=== PATIENT | female | born 1940 | race Caucasian/White ===

== ENCOUNTER 2016-09-16 11:23 | Inpatient (IN) | payer MEDICARE, BC ==
[2016-09-16] MEDS ORDERED: Ondansetron INJ* 2 MG/ML VIAL IV ONE (13:38)
[2016-09-16] MEDS ORDERED: NS 0.9% 1000 ML* 2,000 ML IV ONE (13:38)
[2016-09-16] MEDS ORDERED: Morphine INJ* 4 MG/ML 1 ML CARPUJECT IV ONE ×2 (13:38→13:47)
[2016-09-16] MEDS ORDERED: Aspirin Low Dose CHEW TAB* 81 MG PO ONE (13:38)
[2016-09-16 13:53] LABS: Hematocrit 30 % (35-47); Hemoglobin 9.4 g/dl (12.0-16.0); Mean Corpuscular HGB Conc 32 g/dl (31-36); Mean Corpuscular Hemoglobin 26 pg (27-31); Mean Corpuscular Volume 83 fL (80-97); Mean Platelet Volume 9 um3 (7.4-10.4); Red Blood Count 3.59 10^6/ul (4.0-5.4); Red Cell Distribution Width 16 % (10.5-15)
[2016-09-16 14:07] LABS: Troponin I 0.02 ng/mL (<0.04)
[2016-09-16 14:09] LABS: ALT 8 U/L (7-52); AST 12 U/L (13-39); Albumin 3.3 g/dL (3.2-5.2); Alkaline Phosphatase 79 U/L (34-104); Amylase 51 U/L (29-103); Anion Gap 5 mmol/L (2-11); BUN/Creatinine Ratio 17.5 (8-20); Blood Urea Nitrogen 14 mg/dL (6-24); C Reactive Protein 100.35 mg/L (< 5.00); CO2 Carbon Dioxide 33 mmol/L (22-32); Calcium 12.8 mg/dL (8.6-10.3); Chloride 98 mmol/L (101-111); Creatine Kinase 19 U/L (10-223); EGFR African American 89.4 (>60); EGFR Non-African American 69.6 (>60); Globulin 3.9 g/dL (2-4); Glucose 120 mg/dL (70-100); Lipase < 10 U/L (11.0-82.0); Magnesium 1.8 mg/dL (1.9-2.7); Sodium 136 mmol/L (133-145); Total Protein 7.2 g/dL (6.4-8.9)
--- NOTE | 2016-09-16 14:16 | RAD ---
HISTORY: Cough, shortness of breath, pneumonia COMPARISONS: None VIEWS:1: Single frontal portable view of the chest at 1:50 PM FINDINGS: LINES AND TUBES: None. CARDIOMEDIASTINAL SILHOUETTE: The cardiomediastinal silhouette is normal for portable technique. PLEURA: The costophrenic angles are sharp. No pleural abnormalities are noted. LUNG PARENCHYMA: There is opacification appears to be limited to the right lower lobe, with relative sparing of the right middle and upper lobes ABDOMEN: The upper abdomen is clear. There is no subphrenic gas. BONES AND SOFT TISSUES: No bone or soft tissue abnormalities are noted. IMPRESSION: RIGHT LOWER LOBE OPACIFICATION. WHILE THIS MAY REPRESENT INFECTIOUS CONSOLIDATION, NEOPLASM OR OTHER INFILTRATIVE PROCESS IS WITHIN THE DIFFERENTIAL. RECOMMEND CONSIDERATION OF FURTHER EVALUATION WITH CONTRAST-ENHANCED CT OF THE CHEST
[2016-09-16] MEDS ORDERED: Iohexol 350* (CONTRAST) 500 ML MDV IV ONE (14:50)
[2016-09-16 14:51] LABS: Erythrocyte Sed Rate 94 mm/Hr (0-40)
--- NOTE | 2016-09-16 16:33 | RAD ---
Indication: Right-sided chest pain, white loss and hemoptysis. Contrast: Administered 78.0 ml of Contrast -- mgi/ml CTA of the chest, abdomen and pelvis was performed after oral and IV contrast administration. Coronal and sagittal reconstructed images were obtained. The pulmonary arterial tree is well opacified. There are no filling defects present to suggest pulmonary embolus. There is a large mass in the right upper lobe lung zone extending into the right middle lobe measuring 9.2 x 9.7 x 10.5 cm. A central air fluid level is noted suggestive of necrosis. There is solid component which extends through the chest wall. This is suspicious for neoplastic process. Additional mass is noted in the right lower lobe medially measuring approximately 2.2 cm. This is suspicious for metastatic focus. The left lung field demonstrates no evidence of alveolar consolidation or pleural fluid. Emphysematous changes of the lung field is noted. There is likely right hilar adenopathy measuring up to 12 mm. Subcarinal lymph nodes measuring up to 17 mm is present. The heart demonstrates no pericardial effusion. The bony structures demonstrates chronic compression of T7. No sclerotic or lytic lesions are identified. CT of the abdomen and pelvis was performed. The liver is normal in size. Low density lesion in the medial left lobe of liver measuring up to 2.5 cm is nonspecific however mass is not excluded. Typical focal fatty infiltration is noted in the medial segment of left lobe of liver. Gallbladder demonstrates no calcified gallstones. The spleen is normal in size. There is a hiatal hernia present. Pancreas demonstrates no mass or pancreatic ductal dilatation. No calcified gallstones are noted. No pericholecystic fluid or wall thickening is identified. The common duct is not dilated. There is a left adrenal mass measuring 3.3 cm with low density central portion which may represent necrosis. There is suggestion of a right adrenal mass measuring up to 13 mm. Metastatic disease should BE considered. Aorta and inferior vena cava are unremarkable. The kidneys demonstrate symmetric nephrograms. Low density lesion in the right kidney measures 17 mm and is not clearly cystic. Ultrasound May BE helpful for further evaluation. CT of the pelvis demonstrates uterus and ovaries to be unremarkable. The urinary bladder is unremarkable. No hernias are identified. The remainder of the bony structures are unremarkable. IMPRESSION: THERE IS NO EVIDENCE OF PULMONARY EMBOLUS. A LARGE CAVITARY MASS IS NOTED IN THE RIGHT UPPER LOBE EXTENDING INTO THE RIGHT MIDDLE LOBE WITH BULGING OF THE CONTOUR THROUGH THE CHEST WALL IN THE RIGHT LATERAL ASPECT. THIS MEASURES UP TO 10.5 CM WITH MULTIPLE LOBULATED SOLID COMPONENTS. THIS IS SUSPICIOUS FOR NEOPLASTIC PROCESS. ADDITIONAL LOBULATED MASS IS NOTED IN THE LOWER LOBE MEDIALLY MEASURING UP TO 2.5 CM CONSISTENT WITH METASTATIC DISEASE. THERE IS MILD MEDIASTINAL ADENOPATHY WITH PROBABLE RIGHT HILAR ADENOPATHY NOTED. BILATERAL ADRENAL MASS LARGER ON THE LEFT THAN ON THE RIGHT SUSPICIOUS FOR METASTATIC DISEASE. LOW DENSITY LESION IN THE POSTERIOR MEDIAL SEGMENT OF THE LEFT LOBE OF LIVER FOR WHICH METASTATIC DISEASE CANNOT BE EXCLUDED. LOW DENSITY LESION IN THE RIGHT KIDNEY NOT CLEARLY CYSTIC. ULTRASOUND IS SUGGESTED.
[2016-09-16] MEDS ORDERED: Acetaminophen TAB* 325 MG PO PRN (17:51)
--- NOTE | 2016-09-16 18:52 | ED ---
Ascencion Murguia Erika, scribed for Oskar Palafox MD on 09/16/16 at 1458 . HPI Chest Pain - HPI Summary HPI Summary: Patient is a 76-year-old female presenting to the ED with a CC of constant chest pain starting 2 weeks ago. She reports that the pain is located right anterior and in her right upper back, and radiates around the rib cage occasionally. Pain has stayed at the same severity. Pain is slightly alleviated by lying supine, and slightly aggravated by deep breathing, but is not changed by PO intake. Patient also reports SOB, wheezing, and a productive cough. SOB is aggravated by exertion. Pt is unsure if she has had blood in her sputum. Pt also states that she has been weak for the past 2-3 weeks, and loses her balance while walking. Associated symptoms include diaphoresis at night as well as decreased appetite and constipation. Per daughter, pt has lost at least 15 lbs in the past month. Patient denies fever, chills, abdominal pain, blood in her stool, diarrhea, additional myalgias/arthralgias, and pain/swelling in her legs. Pt states she did not have a flu shot this season. Pt states she does not take any medication. FHx CAD. Pt is a former smoker - quit 8 months ago - and she rarely drinks. - History of Current Complaint Chief Complaint: EDChestPainROMI Time Seen by Provider: 09/16/16 13:20 Hx Obtained From: Patient, Family/Produce Laborer - daughter Onset/Duration: Started Weeks Ago - 2 weeks, Atraumatic, Still Present Timing: Constant Current Severity: Moderate Pain Intensity: 10 Pain Scale Used: 0-10 Numeric Chest Pain Location: Right Anterior Chest Pain Radiates: Yes Chest Pain Radiates To:: Back - right Aggravating Factor(s): Deep Breaths Alleviating Factor(s): Position - supine Associated Signs and Symptoms: Positive: Weakness - and decreased balance, Shortness of Breath, Diaphoresis, Productive Cough, Wheezing, Other: - weight loss, decreased appetite - Allergy/Home Medications Allergies/Adverse Reactions: Allergies Allergy/AdvReac Type Severity Reaction Status Date / Time No Known Allergies Allergy Verified 09/16/16 11:24 Home Medications: Home Medications NK [No Home Medications Reported] 09/16/16 [History Confirmed 09/16/16] PMH/Surg Hx/FS Hx/Imm Hx Endocrine/Hematology History: Denies: Hx Diabetes Cardiovascular History: Denies: Hx Hypertension Infectious Disease History: No Infectious Disease History: Denies: Traveled Outside the [place] in Last 30 Days - Family History Known Family History: Positive: Cardiac Disease - Social History Alcohol Use: Rare Hx Tobacco Use: Yes Smoking Status (MU): Former Smoker Review of Systems Positive: Skin Diaphoresis. Negative: Fever, Chills Positive: Chest Pain - radiates to back Positive: Shortness Of Breath - with wheezing, Cough - productive Positive: Other - decreased appetite, constipation. Negative: Abdominal Pain, Diarrhea Negative: Edema Positive: Weakness - with decreased balance All Other Systems Reviewed And Are Negative: Yes Physical Exam - Summary Physical Exam Summary: The patient is well-nourished in no acute distress and in no acute pain. The skin is warm and dry and skin color reflects adequate perfusion. There are no rashes. There is decreased skin turgor. HEENT: The head is normocephalic and atraumatic. The pupils are equal and reactive. The conjunctivae are pale and without drainage. Nares are patent and without drainage. Mouth reveals dry mucous membranes and the throat is without erythema and exudate. The external ears are intact. The ear canals are patent and without drainage. The tympanic membranes are intact. Neck is supple with full range of motion and non-tender. There are no carotid bruits. There is some neck vein distension. There is no cervical lymphadenopathy. Respiratory: Chest is non-tender. There are decreased breath sounds throughout. Cardiovascular: Heart is regular rate and rhythm. There is no murmur or rub auscultated. There is no peripheral edema and pulses are symmetrical and equal. Abdomen: The abdomen is soft and non-tender. There are normal bowel sounds heard in all four quadrants and there is no organomegaly palpated. Musculoskeletal: There is no back pain noted. Extremities are non-tender with full range of motion. Capillary refill is 3 seconds. There is no peripheral edema or calf tenderness elicited. Neurological: Patient is alert and oriented to person, place and time. The patient has symmetrical motor strength in all four extremities. Cranial nerves are grossly intact. Deep tendon reflexes are symmetrical and equal in all four extremities. Psychiatric: The patient has an appropriate affect and does not exhibit any anxiety or depression. Triage Information Reviewed: Yes Vital Signs On Initial Exam: Initial Vitals Temp Pulse Resp BP Pulse Ox 99.8 F 86 18 127/51 97 09/16/16 11:24 09/16/16 11:24 09/16/16 11:24 09/16/16 11:24 09/16/16 11:24 Vital Signs Reviewed: Yes Diagnostics - Vital Signs Vital Signs Temp Pulse Resp BP Pulse Ox 09/16/16 11:24 99.8 F 86 18 127/51 97 - Laboratory Lab Results: Lab Results 09/16/16 09/16/16 09/16/16 Range/Units 11:40 11:40 11:40 WBC 13.0 H (3.5-10.8) 10^3/ul RBC 3.59 L (4.0-5.4) 10^6/ul Hgb 9.4 L (12.0-16.0) g/dl Hct 30 L (35-47) % MCV 83 (80-97) fL MCH 26 L (27-31) pg MCHC 32 (31-36) g/dl RDW 16 H (10.5-15) % Plt Count 385 (150-450) 10^3/ul MPV 9 (7.4-10.4) um3 Neut % (Auto) 77.7 (38-83) % Lymph % (Auto) 11.0 L (25-47) % Meigs % (Auto) 7.7 (1-9) % Eos % (Auto) 2.6 (0-6) % Baso % (Auto) 1.0 (0-2) % Absolute Neuts (auto) 10.1 H (1.5-7.7) 10^3/ul Absolute Lymphs (auto) 1.4 (1.0-4.8) 10^3/ul Absolute Monos (auto) 1.0 H (0-0.8) 10^3/ul Absolute Eos (auto) 0.3 (0-0.6) 10^3/ul Absolute Basos (auto) 0.1 (0-0.2) 10^3/ul Absolute Nucleated RBC 0.01 10^3/ul Nucleated RBC % 0 ESR 94 H (0-40) mm/Hr INR (Anticoag Therapy) 0.98 (0.89-1.11) D-Dimer, Quantitative 287 H (Less Than 230) ng/mL Sodium 136 (133-145) mmol/L Potassium 3.0 L (3.5-5.0) mmol/L Chloride 98 L (101-111) mmol/L Carbon Dioxide 33 H (22-32) mmol/L Anion Gap 5 (2-11) mmol/L BUN 14 (6-24) mg/dL Creatinine 0.80 (0.51-0.95) mg/dL Est GFR ( Amer) 89.4 (>60) Est GFR (Non-Af Amer) 69.6 (>60) BUN/Creatinine Ratio 17.5 (8-20) Glucose 120 H (70-100) mg/dL Calcium 12.8 H (8.6-10.3) mg/dL Magnesium 1.8 L (1.9-2.7) mg/dL Total Bilirubin 0.40 (0.2-1.0) mg/dL AST 12 L (13-39) U/L ALT 8 (7-52) U/L Alkaline Phosphatase 79 (34-104) U/L Total Creatine Kinase 19 (10-223) U/L Troponin I 0.02 (<0.04) ng/mL C-Reactive Protein 100.35 H (< 5.00) mg/L B-Natriuretic Peptide ( - 100) pg/mL Total Protein 7.2 (6.4-8.9) g/dL Albumin 3.3 (3.2-5.2) g/dL Globulin 3.9 (2-4) g/dL Albumin/Globulin Ratio 0.8 L (1-3) Amylase 51 (29-103) U/L Lipase < 10 L (11.0-82.0) U/L TSH 0.70 (0.34-5.60) mcIU/mL 09/16/16 Range/Units 11:40 WBC (3.5-10.8) 10^3/ul RBC (4.0-5.4) 10^6/ul Hgb (12.0-16.0) g/dl Hct (35-47) % MCV (80-97) fL MCH (27-31) pg MCHC (31-36) g/dl RDW (10.5-15) % Plt Count (150-450) 10^3/ul MPV (7.4-10.4) um3 Neut % (Auto) (38-83) % Lymph % (Auto) (25-47) % Meigs % (Auto) (1-9) % Eos % (Auto) (0-6) % Baso % (Auto) (0-2) % Absolute Neuts (auto) (1.5-7.7) 10^3/ul Absolute Lymphs (auto) (1.0-4.8) 10^3/ul Absolute Monos (auto) (0-0.8) 10^3/ul Absolute Eos (auto) (0-0.6) 10^3/ul Absolute Basos (auto) (0-0.2) 10^3/ul Absolute Nucleated RBC 10^3/ul Nucleated RBC % ESR (0-40) mm/Hr INR (Anticoag Therapy) (0.89-1.11) D-Dimer, Quantitative (Less Than 230) ng/mL Sodium (133-145) mmol/L Potassium (3.5-5.0) mmol/L Chloride (101-111) mmol/L Carbon Dioxide (22-32) mmol/L Anion Gap (2-11) mmol/L BUN (6-24) mg/dL Creatinine (0.51-0.95) mg/dL Est GFR ( Amer) (>60) Est GFR (Non-Af Amer) (>60) BUN/Creatinine Ratio (8-20) Glucose (70-100) mg/dL Calcium (8.6-10.3) mg/dL Magnesium (1.9-2.7) mg/dL Total Bilirubin (0.2-1.0) mg/dL AST (13-39) U/L ALT (7-52) U/L Alkaline Phosphatase (34-104) U/L Total Creatine Kinase (10-223) U/L Troponin I (<0.04) ng/mL C-Reactive Protein (< 5.00) mg/L B-Natriuretic Peptide 178 H ( - 100) pg/mL Total Protein (6.4-8.9) g/dL Albumin (3.2-5.2) g/dL Globulin (2-4) g/dL Albumin/Globulin Ratio (1-3) Amylase (29-103) U/L Lipase (11.0-82.0) U/L TSH (0.34-5.60) mcIU/mL Result Diagrams: 09/16/16 11:40 09/16/16 11:40 Lab Statement: Any lab studies that have been ordered have been reviewed, and results considered in the medical decision making process. - Radiology CXR Radiology Interpretation Completed By: Radiologist - IMPRESSION: RIGHT LOWER LOBE OPACIFICATION. WHILE THIS MAY REPRESENT INFECTIOUS CONSOLIDATION, NEOPLASM OR OTHER INFILTRATIVE PROCESS IS WITHIN THE DIFFERENTIAL. RECOMMEND CONSIDERATION OF FURTHER EVALUATION WITH CONTRAST-ENHANCED CT OF THE CHEST - CT CTA Chest/Abd/Pelvis CT Interpretation Completed By: Radiologist - IMPRESSION: THERE IS NO EVIDENCE OF PULMONARY EMBOLUS. A LARGE CAVITARY MASS IS NOTED IN THE RIGHT UPPER LOBE EXTENDING INTO THE RIGHT MIDDLE LOBE WITH BULGING OF THE CONTOUR THROUGH THE CHEST WALL IN THE RIGHT LATERAL ASPECT. THIS MEASURES UP TO 10.5 CM WITH MULTIPLE LOBULATED SOLID COMPONENTS. THIS IS SUSPICIOUS FOR NEOPLASTIC PROCESS. ADDITIONAL LOBULATED MASS IS NOTED IN THE LOWER LOBE MEDIALLY MEASURING UP TO 2.5 CM CONSISTENT WITH METASTATIC DISEASE. THERE IS MILD MEDIASTINAL ADENOPATHY WITH PROBABLE RIGHT HILAR ADENOPATHY NOTED. BILATERAL ADRENAL MASS LARGER ON THE LEFT THAN ON THE RIGHT SUSPICIOUS FOR METASTATIC DISEASE. LOW DENSITY LESION IN THE POSTERIOR MEDIAL SEGMENT OF THE LEFT LOBE OF LIVER FOR WHICH METASTATIC DISEASE CANNOT BE EXCLUDED. LOW DENSITY LESION IN THE RIGHT KIDNEY NOT CLEARLY CYSTIC. ULTRASOUND IS SUGGESTED. - EKG 11:29 Cardiac Rate: NL - at 81 bpm EKG Rhythm: Sinus Rhythm Ectopy: PVCs EKG Interpretation: Poor R wave progression Chest Pain Course/Dx - Course Assessment/Plan: Patient is a 76 y/o F presenting to the ED with a CC of chest pain, SOB, wheezing, and cough for the past 2 weeks. EKG shows NSR with PVCs and poor R wave progression. Patient was given ASA, IV fluids, zofran, and morphine in the ED course. Chest/Abd/Pelvis CTA shows "There is no evidence of pulmonary embolus. A large cavitary mass is noted in the right upper lobe extending into the right middle lobe with bulging of the contour through the chest wall in the right lateral aspect. This measures up to 10.5 cm with multiple lobulated solid components. This is suspicious for neoplastic process. Additional lobulated mass is noted in the lower lobe medially measuring up to 2.5 cm consistent with metastatic disease. There is mild mediastinal adenopathy with probable right hilar adenopathy noted. Bilateral adrenal mass larger on the left than on the right suspicious for metastatic disease. Low density lesion in the posterior medial segment of the left lobe of liver for which metastatic disease cannot be excluded. Low density lesion in the right kidney not clearly cystic. Ultrasound is suggested." The case was discussed with Dr. Watson (hospitalist), and patient will be admitted for further work up and management. Patient is agreeable with this plan - Chest Pain Differential Diagnosis/HQI/PQRI: Acute MA, Lower Respiratory Infection, Pulmonary Embolism, Other: - lung cancer with mets, dehydration - Diagnoses Provider Diagnoses: Lung tumor, Metastatic disease - Provider Notifications Discussed Care Of Patient With: Dr. Watson (hospitalist) at 17:36 - agrees to admit Discharge - Discharge Plan Condition: Stable Disposition: ADMITTED TO [facility] The documentation as recorded by the Ascencion antony Erika accurately reflects the service I personally performed and the decisions made by , Oskar Palafox MD.
[2016-09-16] MEDS ORDERED: Iohexol 300* (CONTRAST) 10 ML SDV IV ONE (19:19)
--- NOTE | 2016-09-16 19:45 | RAD ---
Indication: Confusion, evaluate for metastases. Contrast: Administered 74.9 ml of OMNIPAQUE 300 mgi/ml CT of the brain performed without and with IV contrast. Ventricular structures are midline. No midline shift is noted. Central and cortical atrophy is noted. There is a hyperdense mass in the right parietal lobe high in the right parietal convexity with enhancement. This is consistent with the metastatic focus. Adjacent vasogenic edema is noted. No midline shift is noted. Periventricular lucency consistent with chronic ischemic White matter change is noted. Mastoid air cells and paranasal sinuses are unremarkable. IMPRESSION: HYPERDENSE ENHANCING MASS HIGH IN THE RIGHT PARIETAL CONVEXITY CONSISTENT WITH A METASTATIC FOCUS WITH ADJACENT VASOGENIC EDEMA.
[2016-09-16] MEDS: oxyCODONE/Acetamin 5/325 MG* TAB PO PRN (20:07)
[2016-09-16] MEDS: oxyCODONE SR TAB(*) 10 MG TAB.SR PO SCH (20:08)
[2016-09-16] MEDS: Enoxaparin(*) 40 MG/0.4 ML SYR SUBCUT SCH (20:36)
--- NOTE | 2016-09-16 21:16 | HP ---
HOSPITAL MEDICINE HISTORY AND PHYSICAL: DATE OF ADMISSION: 09/16/16 PRIMARY CARE PHYSICIAN: None. ATTENDING PHYSICIAN: He Watson MD * (dictation provided by Chandni Rose NP ). CHIEF COMPLAINT: Chest pain. HISTORY OF PRESENT ILLNESS: Ms. oNguera is a 76-year-old female with no known past medical history other than prolonged smoking who presented to the hospital today with concern for right-sided chest discomfort. Ms. Nougera states that she has had at least 6 months of chest pain that seemed to get much worse over the past month. She went to [facility] approximately 3 weeks ago to be seen in the emergency room, but she waited for several hours and ultimately left without being seen. She decided to come in today because the pain was so severe that she could not get any relief. She states that the only thing that helps with the pain is lying down on her bed on her stomach, although this is not particularly helpful. She has had a cough, but it has not been productive. She states she is short of breath and her breathing is a bit labored. She reports smoking most of her life until about 6 months ago. She used to be a heavy drinker, but states that she has not been able to tolerate drinking any longer. She lives with her . She denies any fevers, chills, abdominal pain, nausea, difficulty with bowel movements or urination. I will note that Ms. Noguera is a bit of a difficult historian and seems to have some confusion at times. This is corroborated by her memory care program director who is at the bedside who states that she has had definite periods of confusion over the past month or so. In the emergency room, Ms. Noguera had a chest x-ray, which showed concern for right lower lobe opacification and it was recommended that a contrast-enhanced CT of the chest will be ordered. This was done and also included an abdomen and pelvis CT and it has been read to show "a large cavitary mass in the right upper lobe extending into the right middle lobe with bulging of the contour through the chest wall and to the right lateral aspect. It is suspicious for a neoplastic process. Additional lobulated mass is noted in the lower lobe medially measuring up to 2.5 cm consistent with metastatic disease. There is mild mediastinal adenopathy with proper right hilar adenopathy noted. Bilateral adrenal mass large in the left than on the right suspicious for metastatic disease. Low density lesion in the posterior medial segment of the left lobe of liver for which metastatic disease cannot be excluded and low density lesion in the right kidney, not clearly cystic. Ultrasound is suggested." Ms. Noguera was informed of the concern for large mass in the lung with additional masses noted in the abdomen with high suspicion for cancer with metastatic disease. Hospital Medicine was called regarding admission. PAST MEDICAL HISTORY: None. MEDICATIONS: Ibuprofen p.r.n. ALLERGIES: None. FAMILY HISTORY: The patient reports her dad at 52 from alcoholism. Mom from heart disease. SOCIAL HISTORY: The patient states she quit smoking 6 months ago after decades of smoking. She reports previously being a daily drinker, but has not been able to drink for several months due to feeling poorly. She states that her is her healthcare proxy. I do note that he has chronic illnesses on peritoneal dialysis. REVIEW OF SYSTEMS: A 14-point review of systems was completed with Ms. Noguera and all those not mentioned above were negative. PHYSICAL EXAMINATION GENERAL: Ms. Noguera is sitting up in the bed. She is a very unkempt thin female, in no acute distress. VITAL SIGNS: Temperature 98.7, heart rate 118, respiratory rate 21, O2 saturation 90% on 2 L, blood pressure 111/71. LUNGS: Diminished bilaterally with no accessory muscle use. HEART: S1, S2. No murmur, rub, or gallop and regular. ABDOMEN: Soft, nontender with bowel sounds positive x4. NEURO: She is alert. She is oriented x3, but she definitely evidences confusion and has distracted conversation and it is hard to keep on task. She moves all extremities equally. There is no facial asymmetry or focal weakness. Extraocular movements are intact. EXTREMITIES: No cyanosis or edema. SKIN: Intact. LABORATORY DATA/DIAGNOSTIC STUDIES: WBC 13.0, hemoglobin 9.4, hematocrit 30, and platelet count 385. ESR 94, INR 0.98, D-dimer 287. Sodium 136, potassium 3.0, chloride 98, serum bicarbonate 33, BUN 14, creatinine 0.80, glucose 120, magnesium 1.8, troponin 0.02. CRP 100.35, BNP 178. Chest x-ray is read as follows; "right lower lobe opacification. While this may represent infectious consolidation, neoplasm or other infiltrative process is within the differential" and chest, abdomen, and pelvis CTA as read above. ASSESSMENT: Ms. Noguera is a 76-year-old female who has not previously sought out medical care who has a prolonged smoking history and presents today at hospital with concern for right-sided chest discomfort for over 6 months as well as dyspnea on exertion. In the emergency room, she has been found to have a large right-sided mass in the lung as well as multiple sites of likely metastasis in the abdomen with high suspicion for malignancy. Our plans are for inpatient admission as I expect the length of stay to be greater than 2 days for the followin. Chest pain with suspected malignancy with metastasis: The patient will have OxyContin started tonight at 10 mg q.12 hours. She will also have oxycodone available p.r.n. We can adjust this as needed until we can find a dosage regimen that will keep her comfortable. Again, there is a high suspicion for malignancy. I am adding on a CT of the brain in the setting of altered mental status. The patient will need to follow up closely with Oncology. 2. DVT prophylaxis with heparin subcu. 3. Disposition to medical floor. I questioned whether or not the patient will be able to remain at home and care for herself. I know that her is chronically ill as well. I have ordered Physical Therapy to better assess her capacity for independent living. TIME SPENT: Approximately 60 minutes were spent on the admission of this patient, more than half the time spent with the patient at the bedside reviewing the events leading up to this hospitalization, performing the physical examination, and reviewing [place] [id number]/[facility] #: [id number] SHAUNNA
[2016-09-17] MEDS: oxyCODONE/Acetamin 5/325 MG* TAB PO PRN ×3 (00:09→21:19)
[2016-09-17] MEDS: oxyCODONE SR TAB(*) 10 MG TAB.SR PO SCH ×2 (07:43→17:53)
[2016-09-17] MEDS ORDERED: Dexamethasone IV* 12 MG in NS 0.9% 50 ML* 50 ML IVPB ONE (08:30)
[2016-09-17] MEDS: NS 0.9% 1000 ML* 1,000 ML IV SCH ×2 (12:08→21:28)
[2016-09-17 12:17] LABS: Hematocrit 28 % (35-47); Hemoglobin 8.8 g/dl (12.0-16.0); Mean Corpuscular HGB Conc 32 g/dl (31-36); Mean Corpuscular Hemoglobin 26 pg (27-31); Mean Corpuscular Volume 83 fL (80-97); Mean Platelet Volume 8 um3 (7.4-10.4); Red Blood Count 3.36 10^6/ul (4.0-5.4); Red Cell Distribution Width 16 % (10.5-15); White Blood Count 11.3 10^3/ul (3.5-10.8)
[2016-09-17 12:28] LABS: BUN/Creatinine Ratio 14.9 (8-20); Calcium 11.9 mg/dL (8.6-10.3); EGFR African American 109.8 (>60); EGFR Non-African American 85.3 (>60); Potassium 3.1 mmol/L (3.5-5.0)
[2016-09-17] MEDS ORDERED: ZOLEDRONIC ACID IVPB ONE (12:30)
[2016-09-17] MEDS ORDERED: NS 0.9% IVPB ONE (12:30)
[2016-09-17] MEDS: Dexamethasone IV* 4 MG/ML 1 ML (4 MG) IV SLOW PU SCH ×2 (13:51→21:15)
--- NOTE | 2016-09-17 14:28 | CONS ---
MEDICAL ONCOLOGY CONSULTATION NOTE: DATE OF ADMISSION: 09/16/16 DATE OF CONSULT: 09/17/16 REASON FOR CONSULTATION: New diagnosis of large lung mass and likely lung cancer. HISTORY OF PRESENT ILLNESS: Mrs. Metz is a 76-year-old female with no previous medical care for many years and no previous significant medical history other than prolonged smoking. She reports variously that she has had a right-sided chest pain for 3 months and another time for 6 months. This pain was getting worse. She has been taking Tylenol and ibuprofen, which helps for a short period of time, but would help the most just to lay on the right side. Associated with this, she has had shortness of breath especially when first getting up in the morning and then better after being up for a while. She is rarely getting out of the house. She has not been eating much and reports her weight loss has been dramatic from a 175 pounds several years ago down to a 121 now including about a 40 pound weight loss over the last 6 to 8 months. She has only had a very mild cough. Since she has been in the hospital, this pain has been under much better control. She denies any recent fevers, sweats, chills, or other signs of significant infections. Information is obtained from the patient, from the patient's chart, and also from her stepson who came into the room partway through our conversation. Initial chest x-ray on 09/16/16 reveals a very large right lower lobe opacification. Associated with this, a CT scan of the chest, abdomen, and pelvis was then performed. This revealed approximately a 10 cm right middle lobe mass. There is essential air-fluid level suggestive of necrosis. The solid component goes through the chest wall and actually erodes one of the right lateral ribs. A second right lower lobe lung mass was also noted approximately 2.2 cm. There is significant mediastinal and hilar adenopathy although none over 1.7 cm in short axis. In the abdomen, there is a very suspicious left adrenal mass measuring up to 3.3 cm. The right adrenal is less suspicious but maybe also an issue. Medial left lobe of the liver with a nonspecific mass up to 2.5 cm, although this is not definitively metastatic. The right kidney has a 1.7 cm mass, which is partially cystic and may or may not be another metastatic lesion. No significant abnormalities are seen in the bones other than the eroded right lateral rib. CT scan of the brain is also obtained initially without contrast and then with. This reveals a hypodense enhancing mass high in the right parietal convexity consistent with a metastatic focus. There was a small amount of associated vasogenic edema. There is no shift. PAST MEDICAL AND SURGICAL HISTORY: No previous hospitalizations. No previous surgeries. No hypertension, diabetes, [place], or CVA documented. MEDICATIONS: 1. P.R.N. ibuprofen. 2. P.R.N. Tylenol. ALLERGIES: None. FAMILY HISTORY: Father of alcoholism at age 52. Mother of heart disease. No family history of any malignancies. SOCIAL HISTORY: The patient has been smoking cigarettes since her 40s. Reports she quit 6 months ago, just felt as though she no longer could smoke a pack a day or more for approximately 35 years. Previously a daily drinker but both she and her son report only modest amount of alcohol, never significant consumption. She does not have a health care proxy in place, but would like her to be her health care proxy. Her is on a home peritoneal dialysis and she has been the caregiver for the most per her story. REVIEW OF SYSTEMS: Right-sided chest pain. No significant pain elsewhere. Shortness of breath as discussed above. Occasional headaches. Has had some confusion and some weakness. Has had some difficulty walking recently. She seems to do better since she has been in the hospital with the walker. No significant changes in bowel or bladder. PHYSICAL EXAM: General: This is a 76-year-old female who appears quite cachectic, but no emaciated. She is somewhat unkempt. She is in no acute distress. Vital Signs: Blood pressure 103/55, pulse 90, afebrile, height not obtained, and weight 121 pounds. HEENT: PERRL. EOMI. No erythema or exudates. No palpable cervical or supraclavicular or axillary adenopathy. Heart: Regular rate and rhythm without murmurs, rubs or gallops. Lungs: Diminished breath sounds on the right. Left is clear. No rales, wheezes, or rhonchi. Chest wall, there is a fairly easy to palpate mass in the right lateral chest just below the axilla. This is very tender to touch. Abdomen: Soft and nontender without masses or organomegaly. Back: No CVA or spinal tenderness. Extremities: No clubbing, cyanosis, or edema. Neurologic Exam: The patient is alert. She is oriented to hospitalization, although cannot name the hospital, is oriented it being August and tells me the date is September 15 1916 and cannot correct this when asked to do so. Motor is 5/5 in the upper extremities, 5/5 in the right lower extremity, and about 4+ to 5- /5 in the left proximal lower extremity, 5/5 distally. Sensation is intact to pinprick throughout. Cranial nerves III through XII are intact. DIAGNOSTIC STUDIES/LAB DATA: CBC: White count 13,000; hematocrit 30; hemoglobin 9.4; and platelet count 385,000 with essentially normal differential and sedimentation rate 94. Electrolytes: Sodium 136, potassium 3.0, chloride 98, bicarb of 33, BUN 14, creatinine 0.8, and calcium level is 12.8 likely contributing to her confusion. Albumin is 3.3 giving a corrected calcium of approximately 13.2. TSH 0.7. Liver function tests within normal limits. IMPRESSION: 1. This 76-year-old female presenting with right-sided chest pain, shortness of breath, marked weight loss, and some confusion. She has been found to a have a 10-cm lung mass with a second lung mass as well with adrenal mass, erosion into the rib on the right, questionable lesions in the liver and kidney , and a solitary brain lesion. This has been explained to the patient and her stepson who is in the room with her that this almost certainly may represent bronchogenic carcinoma especially in the setting of a previous smoker. She will be requiring a biopsy. The best area to biopsy for the situation would be the right lung mass, which is somewhat palpable as it comes out through the chest wall and erodes a little bit in that location. Differentials between nonsmall cell and small cell lung cancer. This is a small cell lung cancer and certainly if treated with chemotherapy would be very reasonable. If it is nonsmall cell, we will need to await EGFR, ALK, ROS, and PDL-1 testing. If she would have one of these first three mutations ALK, EGFR, or ROS; then oral targeted therapy would be appropriate. If she would have a PDL-1 greater than 50 % positive, treatment with PDL-1 agent pembrolizumab would be appropriate. If she were negative for all of these mutations then we will need to discuss the role of a systemic chemotherapy given her current state and performance status. Situations discussed with her hospitalist doctor, Dr. Roberson, and arrangements will be made for a CT/ultrasound- guided lung biopsy on Monday. 2. Brain metastasis: The patient has been started on Decadron. Initial dose of 12 mg and 8 mg q.12 hours. 3. Significant pain: Much improved on OxyContin 10 mg b.i.d. and also has available Percocet pills. 4. Hypercalcemia: The patient should receive hydration and Zometa. We will continue to monitor her calcium level. This only maybe contributing to her confusion as well. [id number]/[facility] #: [id number] MTDD
--- NOTE | 2016-09-17 14:30 | PN ---
Subjective Date of Service: 09/17/16 Interval History: HOSPITALIST PROGRESS NOTE Patient seen and examined at bedside. She states her pain is less intense today and she feels more comfortable. Denies dyspnea. Appetite is still poor but she would eat "[employer] if my son could bring it". Family History: Unchanged from Admission Social History: Unchanged from Admission Past Medical History: Unchanged from Admission Objective Active Medications: Acetaminophen (Tylenol Tab*) 650 mg PO Q4H PRN PRN Reason: FEVER/PAIN Dexamethasone Sodium Phosphate (Decadron Iv*) 8 mg IV SLOW PU Q12HR [facility] Last Admin: 09/17/16 13:51 Dose: 8 mg Enoxaparin Sodium (Lovenox(*)) 40 mg SUBCUT Q24H [facility] Last Admin: 09/16/16 20:36 Dose: 40 mg Sodium Chloride (Ns 0.9% 1000 Ml*) 1,000 mls @ 150 mls/hr IV PER RATE [facility] Last Admin: 09/17/16 12:08 Dose: 150 mls/hr Influenza Virus Vaccine (Fluarix *Quad* *) 0.5 ml IM .ONCE ONE Stop: 09/18/16 09:01 Oxycodone HCl (Oxycontin(*)) 10 mg PO Q12H [facility] Last Admin: 09/17/16 07:43 Dose: 10 mg Oxycodone/Acetaminophen (Percocet 5/325 Tab*) 1 tab PO Q4H PRN PRN Reason: Pain Last Admin: 09/17/16 04:30 Dose: 1 tab Potassium Chloride (Klor Con Er Tab*) 40 meq PO BID [facility] Vital Signs 09/17/16 09/17/16 09/17/16 07:38 07:43 08:00 Temperature 97.5 F Pulse Rate 92 Respiratory 17 16 16 Rate Blood Pressure 112/44 (mmHg) O2 Sat by Pulse 85 Oximetry Oxygen Devices in Use Now: Nasal Cannula Appearance: Elderly thin lady sitting up in bed in NAD. Eyes: No Scleral Icterus Ears/Nose/Mouth/Throat: Mucous Membranes Moist Neck: Trachea Midline Respiratory: Symmetrical Chest Expansion and Respiratory Effort, - - BS+ bilaterally, decreased on the right Cardiovascular: RRR - Normal S1 and S2 Abdominal: NL Sounds; No Tenderness; No Distention Neurological: Alert and Oriented x 3, - - Mild LLE weakness Lines/Tubes/Other Access: Clean, Dry and Intact Peripheral IV Nutrition: Taking PO's Result Diagrams: 09/17/16 12:00 09/17/16 12:00 Assess/Plan/Problems-Billing Assessment: Mrs. Noguera is a 76yo F with PMH of tobacco abuse, who presented to ED with c/ o CP, found to have a large lung mass with other lesions suggestive of primary lung CA with metastasis. - Patient Problems (1) Lung mass Comment: - Patient has had months of progressive right sided chest pain, 40lbs weight loss. - CT showed a large RUL/RML mass bulging in to the chest wall, with a smaller lesion in the RLL, mediastinal adenopathy, bilateral adrenal masses, suggestive of primary lung CA with metastasis. - Oncology consult requested. (2) Brain mass Comment: - Right parietal mass with vasogenic edema suggestive of metastatic lesion. - D/w Oncology - will start Dexamethasone. - Continue Neurochecks. (3) Hypercalcemia Comment: - Secondary to malignancy. - IVF and zoledronic acid IV. (4) Malnutrition Comment: - Supplements as per Nutrition. (5) Tobacco abuse, in remission Comment: - She quit 6 months ago. (6) Hypokalemia Comment: - Replete. (7) DVT prophylaxis Comment: - Lovenox. (8) Full code status Status and Disposition: Inpatient. 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 Son will assist, but will request SW consult.
[2016-09-17] MEDS: Potassium Chlor TAB* 20 MEQ TAB.ER PO SCH ×2 (15:06→21:13)
[2016-09-17] MEDS: Enoxaparin(*) 40 MG/0.4 ML SYR SUBCUT SCH (17:54)
[2016-09-18] MEDS: NS 0.9% 1000 ML* 1,000 ML IV SCH ×3 (04:12→18:38)
[2016-09-18] MEDS: oxyCODONE SR TAB(*) 10 MG TAB.SR PO SCH (05:48)
[2016-09-18 07:36] LABS: Hematocrit 26 % (35-47); Hemoglobin 8.2 g/dl (12.0-16.0); Mean Corpuscular HGB Conc 32 g/dl (31-36); Mean Corpuscular Hemoglobin 27 pg (27-31); Mean Corpuscular Volume 83 fL (80-97); Mean Platelet Volume 9 um3 (7.4-10.4); Red Blood Count 3.09 10^6/ul (4.0-5.4); Red Cell Distribution Width 16 % (10.5-15); White Blood Count 9.1 10^3/ul (3.5-10.8)
[2016-09-18] MEDS: Potassium Chlor TAB* 20 MEQ TAB.ER PO SCH (07:55)
[2016-09-18] MEDS: Dexamethasone IV* 4 MG/ML 1 ML (4 MG) IV SLOW PU SCH ×2 (07:56→20:42)
[2016-09-18] MEDS: oxyCODONE/Acetamin 5/325 MG* TAB PO PRN ×2 (07:57→14:59)
[2016-09-18 08:32] LABS: BUN/Creatinine Ratio 16.4 (8-20); Calcium 11.1 mg/dL (8.6-10.3); EGFR African American 122.3 (>60); EGFR Non-African American 95.1 (>60)
[2016-09-18] MEDS ORDERED: Influenza VAC *QUAD* 2016-17* 0.5 ML SYRINGE IM ONE (09:00)
[2016-09-18] MEDS ORDERED: oxyCODONE/Acetamin 5/325 MG* TAB PO PRN (09:53)
--- NOTE | 2016-09-18 10:12 | PN ---
Subjective Date of Service: 09/18/16 Interval History: HOSPITALIST PROGRESS NOTE Patient seen and examined at bedside. She feels better today, pain is 6/10. Was able to get some sleep last night. She feels her mind is "blurry", but thinking is easier now. Family History: Unchanged from Admission Social History: Unchanged from Admission Past Medical History: Unchanged from Admission Objective Active Medications: Acetaminophen (Tylenol Tab*) 650 mg PO Q4H PRN PRN Reason: FEVER/PAIN Dexamethasone Sodium Phosphate (Decadron Iv*) 8 mg IV SLOW PU Q12HR [facility] Last Admin: 09/18/16 07:56 Dose: 8 mg Sodium Chloride (Ns 0.9% 1000 Ml*) 1,000 mls @ 150 mls/hr IV PER RATE [facility] Last Admin: 09/18/16 04:12 Dose: 150 mls/hr Morphine Sulfate (Ms Contin(*)) 15 mg PO Q12H [facility] Oxycodone/Acetaminophen (Percocet 5/325 Tab*) 2 tab PO Q4H PRN PRN Reason: Pain 6-10 Oxycodone/Acetaminophen (Percocet 5/325 Tab*) 1 tab PO Q4H PRN PRN Reason: Pain 1-5 Potassium Chloride (Klor Con Er Tab*) 40 meq PO BID [facility] Last Admin: 09/18/16 07:55 Dose: 40 meq Vital Signs 09/17/16 09/18/16 09/18/16 23:48 05:48 07:24 Temperature 97.9 F Pulse Rate 101 75 Respiratory 18 16 Rate Blood Pressure 156/79 130/71 (mmHg) O2 Sat by Pulse 93 94 Oximetry Oxygen Devices in Use Now: Nasal Cannula Appearance: Pleasant elderly lady sitting up in bed in [facility], eating breakfast. Eyes: No Scleral Icterus Ears/Nose/Mouth/Throat: Mucous Membranes Moist Neck: Trachea Midline Respiratory: Symmetrical Chest Expansion and Respiratory Effort, - - BS+ bilaterally, decreased on the right Cardiovascular: RRR - Normal S1 and S2 Abdominal: NL Sounds; No Tenderness; No Distention Extremities: No Edema Neurological: Alert and Oriented x 3, - - Mild left leg weakness Lines/Tubes/Other Access: Clean, Dry and Intact Peripheral IV Nutrition: Taking PO's Result Diagrams: 09/18/16 06:59 09/18/16 06:59 Assess/Plan/Problems-Billing Assessment: Mrs. Noguera is a 76yo F with PMH of tobacco abuse, who presented to ED with c/ o CP, found to have a large lung mass with other lesions suggestive of primary lung CA with metastasis. - Patient Problems (1) Lung mass Comment: - Patient has had months of progressive right sided chest pain, 40lbs weight loss. - CT showed a large RUL/RML mass bulging in to the chest wall, with a smaller lesion in the RLL, mediastinal adenopathy, bilateral adrenal masses, suggestive of primary lung CA with metastasis. - Oncology consult appreciated. - Plan for lung biopsy tomorrow. (2) Brain mass Comment: - Right parietal mass with vasogenic edema suggestive of metastatic lesion. - D/w Oncology - will start Dexamethasone. - Continue Neurochecks. (3) Hypercalcemia Comment: - Secondary to malignancy. - Received zoledronic acid IV. - Trending down. - Continue IVF. (4) Malnutrition Comment: - Supplements as per Nutrition. (5) Tobacco abuse, in remission Comment: - She quit 6 months ago. (6) Hypokalemia Comment: - Replete. (7) DVT prophylaxis Comment: - Lovenox on hold tonight for lung biopsy tomorrow. (8) Full code status Status and Disposition: Inpatient. 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 Son will assist, but will request SW consult.
[2016-09-18] MEDS: Pantoprazole IV* 40 MG IV SCH (10:59)
[2016-09-18] MEDS: Morphine TAB Extended Release (*) 15 MG TAB.ER PO SCH (20:40)
[2016-09-18] MEDS ORDERED: Potassium Chlor TAB* 20 MEQ TAB.ER PO SCH (21:00)
[2016-09-19] MEDS: NS 0.9% 1000 ML* 1,000 ML IV SCH ×2 (01:43→08:57)
[2016-09-19 05:52] LABS: Hematocrit 26 % (35-47); Mean Corpuscular HGB Conc 31 g/dl (31-36); Mean Corpuscular Hemoglobin 26 pg (27-31); Mean Corpuscular Volume 83 fL (80-97); Mean Platelet Volume 9 um3 (7.4-10.4); Red Blood Count 3.08 10^6/ul (4.0-5.4); Red Cell Distribution Width 16 % (10.5-15); White Blood Count 12.7 10^3/ul (3.5-10.8)
[2016-09-19 06:04] LABS: BUN/Creatinine Ratio 25.9 (8-20); Calcium 9.5 mg/dL (8.6-10.3); EGFR African American 140.8 (>60); EGFR Non-African American 109.5 (>60); Potassium 4.6 mmol/L (3.5-5.0)
[2016-09-19] MEDS: Morphine TAB Extended Release (*) 15 MG TAB.ER PO SCH (08:54)
[2016-09-19] MEDS: Pantoprazole IV* 40 MG IV SCH (08:56)
[2016-09-19] MEDS: Dexamethasone IV* 4 MG/ML 1 ML (4 MG) IV SLOW PU SCH ×2 (08:56→20:49)
[2016-09-19] MEDS: oxyCODONE/Acetamin 5/325 MG* TAB PO PRN ×2 (10:03→16:40)
--- NOTE | 2016-09-19 11:07 | PN ---
Progress Note - Progress Note SOAP: Subjective: []Pain continues, comes and goes and up to 9/10. Not eating much. Not clear she is subjectively improved after Zometa. She is alert and oriented. Working on home PD for . Breathing is short with walking. Acetaminophen (Tylenol Tab*) 650 mg PO Q4H PRN PRN Reason: FEVER/PAIN Dexamethasone Sodium Phosphate (Decadron Iv*) 8 mg IV SLOW PU Q12HR [facility] Last Admin: 09/19/16 08:56 Dose: 8 mg Docusate Sodium (Colace Cap*) 100 mg PO BID [facility] Sodium Chloride (Ns 0.9% 1000 Ml*) 1,000 mls @ 150 mls/hr IV PER RATE [facility] Last Admin: 09/19/16 08:57 Dose: 150 mls/hr Morphine Sulfate (Ms Contin(*)) 15 mg PO Q12H [facility] Last Admin: 09/19/16 08:54 Dose: 15 mg Oxycodone/Acetaminophen (Percocet 5/325 Tab*) 2 tab PO Q4H PRN PRN Reason: Pain 6-10 Oxycodone/Acetaminophen (Percocet 5/325 Tab*) 1 tab PO Q4H PRN PRN Reason: Pain 1-5 Last Admin: 09/19/16 10:03 Dose: 1 tab Pantoprazole Sodium (Protonix Iv*) 40 mg IV DAILY [facility] Last Admin: 09/19/16 08:56 Dose: 40 mg Polyethylene Glycol/Electrolytes (Miralax*) 17 gm PO 0800,2100 [facility] Objective: [] Vital Signs Temp Pulse Resp BP Pulse Ox 97.5 F 91 16 177/75 98 09/19/16 07:31 09/19/16 07:31 09/19/16 10:54 09/19/16 07:31 09/19/16 07:31 HEENT - Mucosa dry, O2. No LAD Chest wall, palpable mass right just under axilla under pec majr. Tender Decreased BS right, left CTA No HSM, good BS Neuro - full exam not done, strength 5/5 throughout Ext +2 clubbing Assessment: []76 year old likely metastatic lung cancer, SSLC vs NSCLC, hyperglycemia. Frail but seems to have an adequate functional status at this time. If SSLC then clearly candidate for chemotherapy, non small cell will be more difficult decision. Plan: []1. Calcium improved and can decrease IVF 2. Case discussed with pathology, will see if she can have FNA by palpation today, if not then via CT tomorrow. 3. Pain not fully controlled but will hold on additional medication 4. Social work to help with 5. Will follow, ok to eat today
[2016-09-19] MEDS: Polyethylene Glycol 3350* 17 GM PACKET PO SCH ×2 (12:16→20:45)
[2016-09-19] MEDS: Docusate CAP* 100 MG PO SCH ×2 (12:16→20:46)
[2016-09-19] MEDS ORDERED: Furosemide IV* 10 MG/ML 2 ML VIAL (20 MG) ONE (12:59)
[2016-09-19] MEDS: Furosemide IV* 10 MG/ML 2 ML VIAL (20 MG) IV ONE (13:02)
[2016-09-19] MEDS: Morphine TAB Extended Release (*) 30 MG TAB.ER PO SCH ×2 (13:06→20:46)
--- NOTE | 2016-09-19 13:39 | RAD ---
Indication: Dyspnea. Single frontal view of the chest performed at 1315 hours was reviewed. Comparison is made with previous exam dated September 16, 2016.. Again noted is a cavitary mass involving the right middle third of the right lung field. Left lung field is clear. No pneumothorax is noted. IMPRESSION: CAVITARY MASS RIGHT MIDLUNG ZONE UNCHANGED FROM SEPTEMBER 16, 2016.
[2016-09-19] MEDS ORDERED: hydrALAZINE IV* 20 MG/ML VIAL IV SLOW PU PRN (15:35)
[2016-09-19] MEDS ORDERED: Furosemide IV* 10 MG/ML 2 ML VIAL (20 MG) IV ONE (15:35)
--- NOTE | 2016-09-19 15:48 | PN ---
Subjective Date of Service: 09/19/16 Interval History: HOSPITALIST PROGRESS NOTE Patient seen and examined at bedside. Her pain is still severe. [place] more dyspneic earlier today, but better now after Furosemide. Family History: Unchanged from Admission Social History: Unchanged from Admission Past Medical History: Unchanged from Admission Objective Active Medications: Acetaminophen (Tylenol Tab*) 650 mg PO Q4H PRN PRN Reason: FEVER/PAIN Dexamethasone Sodium Phosphate (Decadron Iv*) 8 mg IV SLOW PU Q12HR [facility] Last Admin: 09/19/16 08:56 Dose: 8 mg Docusate Sodium (Colace Cap*) 100 mg PO BID [facility] Last Admin: 09/19/16 12:16 Dose: 100 mg Furosemide (Lasix Iv*) 20 mg IV ONCE ONE Stop: 09/20/16 12:35 Last Admin: 09/19/16 13:02 Dose: 20 mg Hydralazine HCl (Apresoline Iv*) 5 mg IV SLOW PU Q6H PRN PRN Reason: SBP>180 Morphine Sulfate (Ms Contin(*)) 30 mg PO Q12HR [facility] Last Admin: 09/19/16 13:06 Dose: 30 mg Oxycodone/Acetaminophen (Percocet 5/325 Tab*) 2 tab PO Q4H PRN PRN Reason: Pain 6-10 Oxycodone/Acetaminophen (Percocet 5/325 Tab*) 1 tab PO Q4H PRN PRN Reason: Pain 1-5 Last Admin: 09/19/16 10:03 Dose: 1 tab Pantoprazole Sodium (Protonix Iv*) 40 mg IV DAILY [facility] Last Admin: 09/19/16 08:56 Dose: 40 mg Polyethylene Glycol/Electrolytes (Miralax*) 17 gm PO 0800,2100 [facility] Last Admin: 09/19/16 12:16 Dose: 17 gm Vital Signs 09/19/16 09/19/16 09/19/16 07:31 08:00 08:54 Temperature 97.5 F Pulse Rate 91 Respiratory 18 18 24 Rate Blood Pressure 177/75 (mmHg) O2 Sat by Pulse 98 Oximetry Oxygen Devices in Use Now: Nasal Cannula Appearance: Elderly frail lady sitting up in bed in NAD. Eyes: No Scleral Icterus Ears/Nose/Mouth/Throat: Mucous Membranes Moist Neck: Trachea Midline Respiratory: Symmetrical Chest Expansion and Respiratory Effort, - - BS+ bilaterally decreased on the right Cardiovascular: RRR - Normal S1 and S2 Abdominal: NL Sounds; No Tenderness; No Distention Extremities: No Edema Neurological: Alert and Oriented x 3, - - Mild left LE weakness Lines/Tubes/Other Access: Clean, Dry and Intact Peripheral IV Nutrition: Taking PO's Result Diagrams: 09/19/16 05:08 09/19/16 05:08 Assess/Plan/Problems-Billing Assessment: Mrs. Noguera is a 76yo F with PMH of tobacco abuse, who presented to ED with c/ o CP, found to have a large lung mass with other lesions suggestive of primary lung CA with metastasis. - Patient Problems (1) Lung mass Comment: - Patient has had months of progressive right sided chest pain, 40lbs weight loss. - CT showed a large RUL/RML mass bulging in to the chest wall, with a smaller lesion in the RLL, mediastinal adenopathy, bilateral adrenal masses, suggestive of primary lung CA with metastasis. - Oncology consult appreciated. - Plan for lung biopsy tomorrow at 1PM. (2) Brain mass Comment: - Right parietal mass with vasogenic edema suggestive of metastatic lesion. - Continue Dexamethasone. - Continue Neurochecks. (3) Hypercalcemia Comment: - Secondary to malignancy. - Received zoledronic acid IV. - Resolved. - D/c IVF. (4) Dyspnea Comment: - Suspect secondary to fluid overload. - D/c IVF, give Furosemide and monitor BP. (5) Malnutrition Comment: - Supplements as per Nutrition. (6) Tobacco abuse, in remission Comment: - She quit 6 months ago. (7) DVT prophylaxis Comment: - Lovenox on hold tonight for lung biopsy tomorrow. (8) Full code status Status and Disposition: Inpatient. 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 Son will assist, and SW has made an APS referral.
[2016-09-20] MEDS: oxyCODONE/Acetamin 5/325 MG* TAB PO PRN ×3 (04:15→15:39)
[2016-09-20] MEDS: Pantoprazole IV* 40 MG IV SCH (08:45)
[2016-09-20] MEDS: Docusate CAP* 100 MG PO SCH ×2 (08:45→22:05)
[2016-09-20] MEDS: Morphine TAB Extended Release (*) 30 MG TAB.ER PO SCH ×2 (08:46→22:05)
[2016-09-20] MEDS: Dexamethasone IV* 4 MG/ML 1 ML (4 MG) IV SLOW PU SCH (08:47)
[2016-09-20] MEDS: Polyethylene Glycol 3350* 17 GM PACKET PO SCH ×2 (08:48→22:07)
--- NOTE | 2016-09-20 11:21 | PN ---
Progress Note - Progress Note SOAP: Subjective: []Better today. Up and eating. Breathing stable, no DSOUZA. Pain continues and can be sever. Worried about at home alone, does not like schedule in hospital Acetaminophen (Tylenol Tab*) 650 mg PO Q4H PRN PRN Reason: FEVER/PAIN Dexamethasone Sodium Phosphate (Decadron Iv*) 8 mg IV SLOW PU Q12HR [facility] Last Admin: 09/20/16 08:47 Dose: 8 mg Docusate Sodium (Colace Cap*) 100 mg PO BID [facility] Last Admin: 09/20/16 08:45 Dose: 100 mg Furosemide (Lasix Iv*) 20 mg IV ONCE ONE Stop: 09/20/16 12:35 Last Admin: 09/19/16 13:02 Dose: 20 mg Hydralazine HCl (Apresoline Iv*) 5 mg IV SLOW PU Q6H PRN PRN Reason: SBP>180 Morphine Sulfate (Ms Contin(*)) 30 mg PO Q12HR [facility] Last Admin: 09/20/16 08:46 Dose: 30 mg Oxycodone/Acetaminophen (Percocet 5/325 Tab*) 2 tab PO Q4H PRN PRN Reason: Pain 6-10 Oxycodone/Acetaminophen (Percocet 5/325 Tab*) 1 tab PO Q4H PRN PRN Reason: Pain 1-5 Last Admin: 09/20/16 08:47 Dose: 1 tab Pantoprazole Sodium (Protonix Iv*) 40 mg IV DAILY [facility] Last Admin: 09/20/16 08:45 Dose: 40 mg Polyethylene Glycol/Electrolytes (Miralax*) 17 gm PO 0800,2100 [facility] Last Admin: 09/20/16 08:48 Dose: 17 gm Objective: [] Vital Signs Temp Pulse Resp BP Pulse Ox 97.8 F 81 19 128/68 92 09/20/16 07:20 09/20/16 07:20 09/20/16 10:47 09/20/16 07:20 09/20/16 07:20 HEENT - mucosa moist, no lesions Palpable mass right chest wall Decreased BS but no wheezing, good air movement Positive BS, NT ND Ext w/o edema, clubbing +2 Neuro - gross non focal but easily lost in thought, difficulty formulating ideas verbally. Assessment: []76 year old NSCLC, WELDER EXPLOSION lesion and large chest mass. Biopsy yesterday. I suspect mass has been growing for prolonged period. 1. Short course XRT to WELDER EXPLOSION lesion as first step. Consult sent to Dr. Ceron. He can see her today or soon after discharge if she is going home. [facility] treatment in [place] for logistical reasons. Gamma knife at [place] is also an option. 2. Discussed treatment with chemotherapy and immunotherpy but prognosis guarded. 3. Home on Dexamethasone 8 mg po bid and long acting morphine. change Dex to po today. Plan: []
[2016-09-20] MEDS: Furosemide IV* 10 MG/ML 2 ML VIAL (20 MG) IV ONE (13:50)
--- NOTE | 2016-09-20 14:45 | PN ---
Subjective Date of Service: 09/20/16 Interval History: Pt is feeling ok. She continues to have pain. She is not sure how she is going to manage at home with knowing when to take her medications or how much to take. She has not been ambulating in the halls because she gets too SOB. Objective Active Medications: Acetaminophen (Tylenol Tab*) 650 mg PO Q4H PRN PRN Reason: FEVER/PAIN Dexamethasone (Decadron Tab*) 8 mg PO Q12HR [facility] Docusate Sodium (Colace Cap*) 100 mg PO BID [facility] Last Admin: 09/20/16 08:45 Dose: 100 mg Hydralazine HCl (Apresoline Iv*) 5 mg IV SLOW PU Q6H PRN PRN Reason: SBP>180 Morphine Sulfate (Ms Contin(*)) 30 mg PO Q12HR [facility] Last Admin: 09/20/16 08:46 Dose: 30 mg Oxycodone/Acetaminophen (Percocet 5/325 Tab*) 2 tab PO Q4H PRN PRN Reason: Pain 6-10 Oxycodone/Acetaminophen (Percocet 5/325 Tab*) 1 tab PO Q4H PRN PRN Reason: Pain 1-5 Last Admin: 09/20/16 08:47 Dose: 1 tab Pantoprazole Sodium (Protonix Iv*) 40 mg IV DAILY [facility] Last Admin: 09/20/16 08:45 Dose: 40 mg Polyethylene Glycol/Electrolytes (Miralax*) 17 gm PO 0800,2100 [facility] Last Admin: 09/20/16 08:48 Dose: 17 gm Vital Signs 09/19/16 09/19/16 09/19/16 15:04 16:40 20:00 Temperature 97.2 F Pulse Rate 80 Respiratory 20 18 18 Rate Blood Pressure 142/67 (mmHg) O2 Sat by Pulse 98 Oximetry 09/19/16 09/20/16 09/20/16 20:46 04:11 04:15 Temperature 97.5 F Pulse Rate 73 Respiratory 18 16 18 Rate Blood Pressure 137/63 (mmHg) O2 Sat by Pulse 100 Oximetry 09/20/16 09/20/16 09/20/16 06:40 07:20 08:00 Temperature 97.8 F Pulse Rate 81 Respiratory 18 16 16 Rate Blood Pressure 128/68 (mmHg) O2 Sat by Pulse 92 Oximetry 09/20/16 09/20/1617 08:46 08:47 10:47 Temperature Pulse Rate Respiratory 16 16 19 Rate Blood Pressure (mmHg) O2 Sat by Pulse Oximetry Oxygen Devices in Use Now: Nasal Cannula Appearance: Elderly ill appearing female sitting up in bed, NAD Eyes: No Scleral Icterus Ears/Nose/Mouth/Throat: Mucous Membranes Moist Respiratory: Symmetrical Chest Expansion and Respiratory Effort, Clear to Auscultation - dimished breath sounds in all lung pathak Cardiovascular: NL Sounds; No Murmurs; No JVD, RRR, No Edema Abdominal: NL Sounds; No Tenderness; No Distention Extremities: No Clubbing, Cyanosis Skin: No Rash or Ulcers, No Nodules or Sclerosis Neurological: - - confused Result Diagrams: 09/19/16 05:08 09/19/16 05:08 Additional Lab and Data: Lab Results 09/16/16 09/16/16 09/16/16 Range/Units 11:40 11:40 11:40 WBC 13.0 H (3.5-10.8) 10^3/ul RBC 3.59 L (4.0-5.4) 10^6/ul Hgb 9.4 L (12.0-16.0) g/dl Hct 30 L (35-47) % MCV 83 (80-97) fL MCH 26 L (27-31) pg MCHC 32 (31-36) g/dl RDW 16 H (10.5-15) % Plt Count 385 (150-450) 10^3/ul MPV 9 (7.4-10.4) um3 Neut % (Auto) 77.7 (38-83) % Lymph % (Auto) 11.0 L (25-47) % Culberson % (Auto) 7.7 (1-9) % Eos % (Auto) 2.6 (0-6) % Baso % (Auto) 1.0 (0-2) % Absolute Neuts (auto) 10.1 H (1.5-7.7) 10^3/ul Absolute Lymphs (auto) 1.4 (1.0-4.8) 10^3/ul Absolute Monos (auto) 1.0 H (0-0.8) 10^3/ul Absolute Eos (auto) 0.3 (0-0.6) 10^3/ul Absolute Basos (auto) 0.1 (0-0.2) 10^3/ul Absolute Nucleated RBC 0.01 10^3/ul Nucleated RBC % 0 ESR 94 H (0-40) mm/Hr INR (Anticoag Therapy) 0.98 (0.89-1.11) D-Dimer, Quantitative 287 H (Less Than 230) ng/mL Sodium 136 (133-145) mmol/L Potassium 3.0 L (3.5-5.0) mmol/L Chloride 98 L (101-111) mmol/L Carbon Dioxide 33 H (22-32) mmol/L Anion Gap 5 (2-11) mmol/L BUN 14 (6-24) mg/dL Creatinine 0.80 (0.51-0.95) mg/dL Est GFR ( Amer) 89.4 (>60) Est GFR (Non-Af Amer) 69.6 (>60) BUN/Creatinine Ratio 17.5 (8-20) Glucose 120 H (70-100) mg/dL Calcium 12.8 H (8.6-10.3) mg/dL Magnesium 1.8 L (1.9-2.7) mg/dL Total Bilirubin 0.40 (0.2-1.0) mg/dL AST 12 L (13-39) U/L ALT 8 (7-52) U/L Alkaline Phosphatase 79 (34-104) U/L Total Creatine Kinase 19 (10-223) U/L Troponin I 0.02 (<0.04) ng/mL C-Reactive Protein 100.35 H (< 5.00) mg/L B-Natriuretic Peptide ( - 100) pg/mL Total Protein 7.2 (6.4-8.9) g/dL Albumin 3.3 (3.2-5.2) g/dL Globulin 3.9 (2-4) g/dL Albumin/Globulin Ratio 0.8 L (1-3) Amylase 51 (29-103) U/L Lipase < 10 L (11.0-82.0) U/L TSH 0.70 (0.34-5.60) mcIU/mL 09/16/16 Range/Units 11:40 WBC (3.5-10.8) 10^3/ul RBC (4.0-5.4) 10^6/ul Hgb (12.0-16.0) g/dl Hct (35-47) % MCV (80-97) fL MCH (27-31) pg MCHC (31-36) g/dl RDW (10.5-15) % Plt Count (150-450) 10^3/ul MPV (7.4-10.4) um3 Neut % (Auto) (38-83) % Lymph % (Auto) (25-47) % Culberson % (Auto) (1-9) % Eos % (Auto) (0-6) % Baso % (Auto) (0-2) % Absolute Neuts (auto) (1.5-7.7) 10^3/ul Absolute Lymphs (auto) (1.0-4.8) 10^3/ul Absolute Monos (auto) (0-0.8) 10^3/ul Absolute Eos (auto) (0-0.6) 10^3/ul Absolute Basos (auto) (0-0.2) 10^3/ul Absolute Nucleated RBC 10^3/ul Nucleated RBC % ESR (0-40) mm/Hr INR (Anticoag Therapy) (0.89-1.11) D-Dimer, Quantitative (Less Than 230) ng/mL Sodium (133-145) mmol/L Potassium (3.5-5.0) mmol/L Chloride (101-111) mmol/L Carbon Dioxide (22-32) mmol/L Anion Gap (2-11) mmol/L BUN (6-24) mg/dL Creatinine (0.51-0.95) mg/dL Est GFR ( Amer) (>60) Est GFR (Non-Af Amer) (>60) BUN/Creatinine Ratio (8-20) Glucose (70-100) mg/dL Calcium (8.6-10.3) mg/dL Magnesium (1.9-2.7) mg/dL Total Bilirubin (0.2-1.0) mg/dL AST (13-39) U/L ALT (7-52) U/L Alkaline Phosphatase (34-104) U/L Total Creatine Kinase (10-223) U/L Troponin I (<0.04) ng/mL C-Reactive Protein (< 5.00) mg/L B-Natriuretic Peptide 178 H ( - 100) pg/mL Total Protein (6.4-8.9) g/dL Albumin (3.2-5.2) g/dL Globulin (2-4) g/dL Albumin/Globulin Ratio (1-3) Amylase (29-103) U/L Lipase (11.0-82.0) U/L TSH (0.34-5.60) mcIU/mL Assess/Plan/Problems-Billing Ms. Noguera is a 76yo F with PMHx of tobacco abuse, who presented to ED with c/ o CP, found to have a large lung mass with other lesions suggestive of primary lung CA with metastasis. - Patient Problems (1) Non-small cell cancer of right lung Current Visit: Yes Status: Acute Code(s): C34.91 - MALIGNANT NEOPLASM OF UNSP PART OF RIGHT BRONCHUS OR LUNG SNOMED Code(s): 739619582 Comment: The patient was found on admission to have a very large R lung mass. Biopsy done yesterday confirmed this was NSCLC with metastases to the liver and brain. She has been seen by oncology and a radiation therapy consult has been requested-she has not been seen yet. She will likely need XRT to the brain lesion but timing on this is not clear. She will need to follow up with the medical oncologists as an outpatient to determine if chemo would be appropriate. Possibly home tomorrow though I think she is going to need additional help at home and with transportation. (2) Dyspnea Current Visit: Yes Status: Acute Code(s): R06.00 - DYSPNEA, UNSPECIFIED SNOMED Code(s): 560205867 Comment: Pt remains SOB with activity. Likely secondary to large lung tumor and probable COPD from her extensive smoking history. (3) Hypercalcemia Current Visit: Yes Status: Acute Code(s): E83.52 - HYPERCALCEMIA SNOMED Code(s): 33314947 Comment: Hypercalcemia has resolved after IVF hydration, lasix and zometa. Monitor intermittently. (4) Malnutrition Current Visit: Yes Status: Acute Code(s): E46 - UNSPECIFIED PROTEIN-CALORIE MALNUTRITION SNOMED Code(s): 0991258 Comment: Pt has severe protein calorie malnutrition as evidenced by muscle wasting and 29% weight loss over the last 1 year. She appears cachectic on exam. (5) Tobacco abuse, in remission Current Visit: Yes Status: Acute Code(s): F17.201 - NICOTINE DEPENDENCE, UNSPECIFIED, IN REMISSION SNOMED Code(s): 789278008 Comment: Continue to encourage smoking cessation. (6) DVT prophylaxis Current Visit: Yes Status: Acute Code(s): RKA7594 - SNOMED Code(s): 617112941 Comment: Lovenox (7) Full code status Current Visit: Yes Status: Acute Code(s): Z78.9 - OTHER SPECIFIED HEALTH STATUS SNOMED Code(s): 357651900 Status and Disposition: .
[2016-09-20] MEDS: Enoxaparin(*) 40 MG/0.4 ML SYR SUBCUT SCH (15:38)
[2016-09-20] MEDS: Dexamethasone TAB* 4 MG PO SCH (22:05)
[2016-09-21] MEDS: oxyCODONE/Acetamin 5/325 MG* TAB PO PRN (08:04)
[2016-09-21] MEDS: Pantoprazole IV* 40 MG IV SCH (08:21)
[2016-09-21] MEDS: Docusate CAP* 100 MG PO SCH (08:22)
[2016-09-21] MEDS: Morphine TAB Extended Release (*) 30 MG TAB.ER PO SCH (08:22)
[2016-09-21] MEDS: Dexamethasone TAB* 4 MG PO SCH (08:22)
[2016-09-21] MEDS: Polyethylene Glycol 3350* 17 GM PACKET PO SCH (08:28)
[2016-09-21 14:47] VITALS: BP 127/94
--- NOTE | 2016-09-21 15:06 | PN ---
Subjective Date of Service: 09/21/16 Interval History: Pt is feeling ok. She seems short in her responses to me today and when I asked her why she stated she was just tired. She states her pain is under control. She has not walked much due to SOB. Objective Active Medications: Acetaminophen (Tylenol Tab*) 650 mg PO Q4H PRN PRN Reason: FEVER/PAIN Dexamethasone (Decadron Tab*) 8 mg PO Q12HR [facility] Last Admin: 09/21/16 08:22 Dose: 8 mg Docusate Sodium (Colace Cap*) 100 mg PO BID [facility] Last Admin: 09/21/16 08:22 Dose: 100 mg Enoxaparin Sodium (Lovenox(*)) 40 mg SUBCUT Q24H [facility] Last Admin: 09/20/16 15:38 Dose: 40 mg Hydralazine HCl (Apresoline Iv*) 5 mg IV SLOW PU Q6H PRN PRN Reason: SBP>180 Morphine Sulfate (Ms Contin(*)) 30 mg PO Q12HR [facility] Last Admin: 09/21/16 08:22 Dose: 30 mg Oxycodone/Acetaminophen (Percocet 5/325 Tab*) 2 tab PO Q4H PRN PRN Reason: Pain 6-10 Oxycodone/Acetaminophen (Percocet 5/325 Tab*) 1 tab PO Q4H PRN PRN Reason: Pain 1-5 Last Admin: 09/21/16 08:04 Dose: 1 tab Pantoprazole Sodium (Protonix Iv*) 40 mg IV DAILY [facility] Last Admin: 09/21/16 08:21 Dose: 40 mg Polyethylene Glycol/Electrolytes (Miralax*) 17 gm PO 0800,2100 [facility] Last Admin: 09/21/16 08:28 Dose: 17 gm Vital Signs 09/20/16 09/20/16 09/20/16 15:35 15:39 19:15 Temperature 98.0 F Pulse Rate 80 Respiratory 16 16 16 Rate Blood Pressure 144/72 (mmHg) O2 Sat by Pulse 97 Oximetry 09/20/16 09/20/16 09/20/16 20:00 22:05 23:41 Temperature 97.7 F Pulse Rate 89 Respiratory 16 16 16 Rate Blood Pressure 131/77 (mmHg) O2 Sat by Pulse 94 Oximetry 09/21/16 09/21/16 09/21/16 07:21 08:00 08:04 Temperature 97.6 F Pulse Rate 73 Respiratory 16 16 16 Rate Blood Pressure 134/70 (mmHg) O2 Sat by Pulse 100 Oximetry 09/21/16 09/21/16 09/21/16 08:22 10:22 11:27 Temperature 97.4 F Pulse Rate 94 Respiratory 16 19 19 Rate Blood Pressure 115/72 (mmHg) O2 Sat by Pulse 97 Oximetry 09/21/16 14:45 Temperature 97.7 F Pulse Rate 80 Respiratory 17 Rate Blood Pressure 127/94 (mmHg) O2 Sat by Pulse 100 Oximetry Oxygen Devices in Use Now: None Appearance: Elderly female sitting up in bed, NAD Eyes: No Scleral Icterus Ears/Nose/Mouth/Throat: Mucous Membranes Moist Respiratory: Symmetrical Chest Expansion and Respiratory Effort, Clear to Auscultation Cardiovascular: NL Sounds; No Murmurs; No JVD, RRR, No Edema Abdominal: NL Sounds; No Tenderness; No Distention Extremities: No Edema, No Clubbing, Cyanosis Skin: No Rash or Ulcers, No Nodules or Sclerosis Neurological: - - mildly confused Result Diagrams: 09/19/16 05:08 09/19/16 05:08 Additional Lab and Data: Lab Results 09/16/16 09/16/16 09/16/16 Range/Units 11:40 11:40 11:40 WBC 13.0 H (3.5-10.8) 10^3/ul RBC 3.59 L (4.0-5.4) 10^6/ul Hgb 9.4 L (12.0-16.0) g/dl Hct 30 L (35-47) % MCV 83 (80-97) fL MCH 26 L (27-31) pg MCHC 32 (31-36) g/dl RDW 16 H (10.5-15) % Plt Count 385 (150-450) 10^3/ul MPV 9 (7.4-10.4) um3 Neut % (Auto) 77.7 (38-83) % Lymph % (Auto) 11.0 L (25-47) % Randall % (Auto) 7.7 (1-9) % Eos % (Auto) 2.6 (0-6) % Baso % (Auto) 1.0 (0-2) % Absolute Neuts (auto) 10.1 H (1.5-7.7) 10^3/ul Absolute Lymphs (auto) 1.4 (1.0-4.8) 10^3/ul Absolute Monos (auto) 1.0 H (0-0.8) 10^3/ul Absolute Eos (auto) 0.3 (0-0.6) 10^3/ul Absolute Basos (auto) 0.1 (0-0.2) 10^3/ul Absolute Nucleated RBC 0.01 10^3/ul Nucleated RBC % 0 ESR 94 H (0-40) mm/Hr INR (Anticoag Therapy) 0.98 (0.89-1.11) D-Dimer, Quantitative 287 H (Less Than 230) ng/mL Sodium 136 (133-145) mmol/L Potassium 3.0 L (3.5-5.0) mmol/L Chloride 98 L (101-111) mmol/L Carbon Dioxide 33 H (22-32) mmol/L Anion Gap 5 (2-11) mmol/L BUN 14 (6-24) mg/dL Creatinine 0.80 (0.51-0.95) mg/dL Est GFR ( Amer) 89.4 (>60) Est GFR (Non-Af Amer) 69.6 (>60) BUN/Creatinine Ratio 17.5 (8-20) Glucose 120 H (70-100) mg/dL Calcium 12.8 H (8.6-10.3) mg/dL Magnesium 1.8 L (1.9-2.7) mg/dL Total Bilirubin 0.40 (0.2-1.0) mg/dL AST 12 L (13-39) U/L ALT 8 (7-52) U/L Alkaline Phosphatase 79 (34-104) U/L Total Creatine Kinase 19 (10-223) U/L Troponin I 0.02 (<0.04) ng/mL C-Reactive Protein 100.35 H (< 5.00) mg/L B-Natriuretic Peptide ( - 100) pg/mL Total Protein 7.2 (6.4-8.9) g/dL Albumin 3.3 (3.2-5.2) g/dL Globulin 3.9 (2-4) g/dL Albumin/Globulin Ratio 0.8 L (1-3) Amylase 51 (29-103) U/L Lipase < 10 L (11.0-82.0) U/L TSH 0.70 (0.34-5.60) mcIU/mL 09/16/16 Range/Units 11:40 WBC (3.5-10.8) 10^3/ul RBC (4.0-5.4) 10^6/ul Hgb (12.0-16.0) g/dl Hct (35-47) % MCV (80-97) fL MCH (27-31) pg MCHC (31-36) g/dl RDW (10.5-15) % Plt Count (150-450) 10^3/ul MPV (7.4-10.4) um3 Neut % (Auto) (38-83) % Lymph % (Auto) (25-47) % Randall % (Auto) (1-9) % Eos % (Auto) (0-6) % Baso % (Auto) (0-2) % Absolute Neuts (auto) (1.5-7.7) 10^3/ul Absolute Lymphs (auto) (1.0-4.8) 10^3/ul Absolute Monos (auto) (0-0.8) 10^3/ul Absolute Eos (auto) (0-0.6) 10^3/ul Absolute Basos (auto) (0-0.2) 10^3/ul Absolute Nucleated RBC 10^3/ul Nucleated RBC % ESR (0-40) mm/Hr INR (Anticoag Therapy) (0.89-1.11) D-Dimer, Quantitative (Less Than 230) ng/mL Sodium (133-145) mmol/L Potassium (3.5-5.0) mmol/L Chloride (101-111) mmol/L Carbon Dioxide (22-32) mmol/L Anion Gap (2-11) mmol/L BUN (6-24) mg/dL Creatinine (0.51-0.95) mg/dL Est GFR ( Amer) (>60) Est GFR (Non-Af Amer) (>60) BUN/Creatinine Ratio (8-20) Glucose (70-100) mg/dL Calcium (8.6-10.3) mg/dL Magnesium (1.9-2.7) mg/dL Total Bilirubin (0.2-1.0) mg/dL AST (13-39) U/L ALT (7-52) U/L Alkaline Phosphatase (34-104) U/L Total Creatine Kinase (10-223) U/L Troponin I (<0.04) ng/mL C-Reactive Protein (< 5.00) mg/L B-Natriuretic Peptide 178 H ( - 100) pg/mL Total Protein (6.4-8.9) g/dL Albumin (3.2-5.2) g/dL Globulin (2-4) g/dL Albumin/Globulin Ratio (1-3) Amylase (29-103) U/L Lipase (11.0-82.0) U/L TSH (0.34-5.60) mcIU/mL Assess/Plan/Problems-Billing Ms. Noguera is a 76yo F with PMHx of tobacco abuse, who presented to ED with c/ o CP, found to have a large lung mass with other lesions suggestive of primary lung CA with metastasis. - Patient Problems (1) Non-small cell cancer of right lung Current Visit: Yes Status: Acute Code(s): C34.91 - MALIGNANT NEOPLASM OF UNSP PART OF RIGHT BRONCHUS OR LUNG SNOMED Code(s): 708123960 Comment: The patient was found on admission to have a very large R lung mass. Biopsy done yesterday confirmed this was NSCLC with metastases to the liver and brain. She has been seen by medical oncology and radiation oncology. She will likely need XRT to the brain lesion but timing on this is not clear. Dr Ceron will arrange for her to have an outpatient appt to further discuss treatment options. She will need to follow up with the medical oncologists as an outpatient to determine if chemo would be appropriate. Home today with VNS, walker and increased awareness by her famiy that she is going to need increased assistance. (2) Dyspnea Current Visit: Yes Status: Acute Code(s): R06.00 - DYSPNEA, UNSPECIFIED SNOMED Code(s): 306843639 Comment: Pt remains SOB with activity. Likely secondary to large lung tumor and probable COPD from her extensive smoking history. (3) Hypercalcemia Current Visit: Yes Status: Acute Code(s): E83.52 - HYPERCALCEMIA SNOMED Code(s): 78936853 Comment: Hypercalcemia has resolved after IVF hydration, lasix and zometa. (4) Malnutrition Current Visit: Yes Status: Acute Code(s): E46 - UNSPECIFIED PROTEIN-CALORIE MALNUTRITION SNOMED Code(s): 8617863 Comment: Pt has severe protein calorie malnutrition as evidenced by muscle wasting and 29% weight loss over the last 1 year. She appears cachectic on exam. (5) Tobacco abuse, in remission Current Visit: Yes Status: Acute Code(s): F17.201 - NICOTINE DEPENDENCE, UNSPECIFIED, IN REMISSION SNOMED Code(s): 837781726 Comment: Continue to encourage smoking cessation. (6) DVT prophylaxis Current Visit: Yes Status: Acute Code(s): OXU0290 - SNOMED Code(s): 897209417 Comment: Jamiex (7) Full code status Current Visit: Yes Status: Acute Code(s): Z78.9 - OTHER SPECIFIED HEALTH STATUS SNOMED Code(s): 740487285 Status and Disposition: d/c home
[2016-09-21] MEDS: Enoxaparin(*) 40 MG/0.4 ML SYR SUBCUT SCH (16:27)
--- NOTE | 2016-09-21 17:09 | RADMED ---
[facility]OGY INPATIENT CONSULTATION: DATE OF CONSULT: 09/20/16 - ROOM #[id number] REFERRING PHYSICIAN: Dr. Brooks. DIAGNOSIS: Metastatic non-small cell lung cancer, AJCC stage IV. HISTORY OF PRESENT ILLNESS: Yuki Noguera is a 76-year-old woman presenting with right-sided chest pain, brought to medical attention prompting CTA chest performed on 09/16/16 identifying 10 cm right lung mass extending into the right chest wall with associated bilateral adrenal masses and low density hepatic lesion. CT scan of the head also on 09/16/16 identifies enhancing mass in the right parietal lobe consistent with metastatic disease. Fine needle aspiration of palpable mass on the right chest wall performed on 09/19/16 confirms poorly differentiated non-small cell carcinoma. She is referred for discussion of radiation therapy, options, particularly for management of her newly discovered brain metastasis from lung cancer. In addition to her chest pain, shortness of breath, she also reports substantial weight loss over the past few months due to decreased appetite. PAST MEDICAL HISTORY: Lung cancer, as in the history of present illness. No other history reported. MEDICATIONS: As per the inpatient record. ALLERGIES: No known drug allergies. FAMILY HISTORY: Significant for her mother who may have had some form of cancer , although the patient is not certain. SOCIAL HISTORY: She is a lifetime smoker, having quit approximately 6 months ago, and is a caregiver for her . REVIEW OF SYSTEMS: As in the history of present illness, otherwise complete review of systems is obtained from the patient, negative for additional significant findings. PHYSICAL EXAM: Vital Signs: Temperature 98.0, pulse rate 80, respiratory rate 16, oxygen saturation 97% on room air, blood pressure 144/72. General: She is awake, alert, and oriented, in no acute distress. Normocephalic, atraumatic. Sclerae anicteric. Neck: Supple. Full range of motion. Midline trachea. No mass palpable on the neck. Lungs with symmetric air entry. Cardiovascular: S1 , S2. Regular rate and rhythm. Chest: Tender palpable irregularity along the right chest wall. Abdomen: Soft and nontender. No mass appreciated. Extremities: No cyanosis, clubbing, or edema. Neurologic: Cranial nerves II through XII are intact. Strength is symmetric in proximal and distal muscle groups in the upper and lower extremities. Speech, language, and communications within normal limits. PATHOLOGY AND RADIOLOGY: Reviewed, as in the history of present illness. ASSESSMENT AND PLAN: Yuki Noguera is a 76-year-old woman with newly diagnosed metastatic non-small cell lung cancer and brain metastasis. I did review her history as well as the pathologic and radiographic findings, I have discussed at some length with the patient, as she is already familiar from hearing from recent test results. I did review the natural history of lung cancer, and considerations for management in her situation, ranging from purely palliative approach and hospice care through active treatment options, with the majority of her discussion focussed on potential role for radiation therapy. Typically, brain metastasis is the highest priority for therapy, and in her situation minimizing difficulties with travel and also potential risks from whole brain radiation therapy, I do believe she could benefit from fractionated stereotactic radiation therapy with focal treatments to the right parietal brain metastasis in 5 sessions. She could also benefit from palliative thoracic radiation therapy to relieve pain, as that is her main concerning symptom at this point, although much better controlled with narcotic pain medicine. With regard to radiation treatment options, I reviewed the logistics and rationale for these treatments, risks, benefits, and alternatives as well as the acute and long-term frequent and uncommon toxicities. I did answer her questions to the best of my ability. She seems quite overwhelmed with the overall situation. She did accept followup visit for further discussion and planning of treatment, which I will provide with her pending discharge. I did provide contact information so that she could get in touch with any additional questions or concerns. Thank you for giving me the opportunity to participate in the care of this very pleasant patient. [id number]/[facility] #: [id number] SHAUNNA
--- NOTE | 2016-09-22 07:51 | DS ---
DISCHARGE SUMMARY: DATE OF ADMISSION: 09/16/16 DATE OF DISCHARGE: 09/21/16 PRIMARY CARE PROVIDER: Dr. Gant. ONCOLOGIST: Dr. Ayala. RADIATION ONCOLOGIST: Dr. Ceron. 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 SECONDARY DIAGNOSES: 1. Chronic obstructive pulmonary disease. 2. Severe protein-calorie malnutrition. 3. Hypercalcemia secondary to malignancy - resolved. DISCHARGE MEDICATIONS: 1. Percocet 5/325 one to two tabs p.o. q.4 hours p.r.n. pain. 2. MiraLAX 17 g p.o. twice daily. 3. Morphine ER 30 mg p.o. q.12 hours. 4. Colace 100 mg p.o. b.i.d. 5. Dexamethasone 8 mg p.o. q.12 hours. HOSPITAL COURSE: Ms. Noguera is a 76-year-old female who has not seen the primary care provider in quite some time, who presents to the emergency room with complaints of shortness of breath and right-sided chest pain. The patient was found to have a large cavitary mass in the right upper lobe extending into the right middle lobe with bulging of the contour through the chest wall into the right lateral aspect. It was felt to be suspicious for a neoplastic process. An additional lobulated mass was noted in the lower lobe medially measuring 2.5 cm consistent with metastatic disease. There is mild mediastinal adenopathy and right hilar adenopathy was noted. Bilateral adrenal mass larger on the left than right suspicious for metastatic disease. Additionally, low-density lesion in the posterior medial segment of the left lobe of the liver for which metastatic disease cannot be excluded and a low-density lesion in the right kidney was also identified. The patient was admitted for evaluation of this presumed metastatic disease. The patient in addition underwent CT of the brain, which revealed a hyperdense enhancing mass high in the right parietal convexity consistent with a metastatic focus with adjacent vasogenic edema. The patient was seen in consultation by Dr. Ayala, who recommended biopsy. It was felt that the best area for biopsy will be the right lateral chest wall as it is somewhat palpable as it comes through the chest wall. The differential was felt to be non-small cell versus small cell lung cancer. Additionally, it was recommended that the patient started on Decadron for the brain metastasis. Pain was the major issue for the patient; therefore, she was started on long-acting morphine and Percocet. With this, her pain has been under fair control. Ultimately, the patient underwent fine needle aspiration of the chest mass on 09/19/16. Pathology from this returned positive for non-small cell lung cancer. The patient was also seen by Radiation Oncology due to the brain metastasis. He reviewed palliative approach and hospice versus active treatment options. He felt that she could benefit from fractionated stereotactic radiation therapy with focal treatments to the right parietal brain metastasis in 5 sessions. He also felt that she could benefit from palliative thoracic radiation therapy to relieve pain. The patient will need to follow up with both Dr. Ayala and Dr. Ceron as an outpatient. I have included Dr. Ayala's number on the discharge summary and will contact the oncology office to ensure that they get her scheduled for a followup appointment. At this point, the patient is wanting to be discharged to home. She is still limited in her ability to get around due to shortness of breath and pain. The patient does understand that she is going to have a significant number of followup appointments here in the near future. I did discuss the patient's case with her stepson, who is her source of transportation. The patient has also been set up for visiting nurses. Additionally, a walker has been ordered and delivered to the hospital for the patient to take home for help getting around. At this time, the patient is stable for discharge home though her overall status is guarded. FOLLOWUP CONCERNS: The patient is being discharged home today, 09/21/16. She is to follow up with Dr. Gant on 09/26/16 at 10 a.m. Again, she is to follow up with Dr. Ayala and Dr. Ceron, either later this week or early next week. ACTIVITY LEVEL: As tolerated. DIET: Regular. CONDITION ON DISCHARGE: Stable. TIME SPENT: Thirty-five was minutes spent discharging this patient. CC: Dr. Ayala; Dr. Gant* [id number]/[facility] #: [id number] [facility]
== END 2016-09-21 16:10 | disposition home health service (06) | DRG 180 ==
LOC: ED 11:23 → MED 17:51
PROVIDERS: ADMIT Internal Medicine; ATTEND Hospitalist
PROC: 0WB83ZX Excision of Chest Wall, Percutaneous Approach, Diagnostic (ICD-10-PCS; principal; 2016-09-16)
DX: C34.11 Malignant neoplasm of upper lobe, right bronchus or lung (principal); E43 Unspecified severe protein-calorie malnutrition; G93.6 Cerebral edema; C78.7 Secondary malignant neoplasm of liver and intrahepatic bile duct; C79.31 Secondary malignant neoplasm of brain; E83.52 Hypercalcemia; C79.70 Secondary malignant neoplasm of unspecified adrenal gland; R59.0 Localized enlarged lymph nodes; J44.9 Chronic obstructive pulmonary disease, unspecified; Z82.49 Family history of ischemic heart disease and other diseases of the circulatory system; Z81.1 Family history of alcohol abuse and dependence; Z87.891 Personal history of nicotine dependence; E87.6 Hypokalemia; R73.9 Hyperglycemia, unspecified; N28.89 Other specified disorders of kidney and ureter; Z68.21 Body mass index [BMI] 21.0-21.9, adult
CPT/HCPCS: 10021; 36415; 70450; 70460; 71010; 71275; 74177; 80048; 80053; 82150; 82550; 83690; 83735; 83880; 84443; 84484; 85025; 85379; 85610; 85652; 86140; 88172; 88173; 88305; 88341; 88342; 93005; 99223; 99232; A9270-GY; J1100; J1650; J1940; J2270; J2405; J3489; J8540; Q9967

== ENCOUNTER 2016-10-07 15:25 | Inpatient (IN) | payer MEDICARE, BC ==
[2016-10-07] MEDS ORDERED: Diltiazem IV* 5 MG/ML 5 ML VIAL (for loading dose/IV Push) (25 MG) IV SLOW PU ONE (15:56)
[2016-10-07] MEDS ORDERED: Diltiazem DRIP* 100 MG/100 ML ADDV.BAG IVPB ONE (15:56)
[2016-10-07] MEDS ORDERED: Diltiazem IV VIAL* 125 MG/25 ML VIAL ONE (15:57)
[2016-10-07 16:26] LABS: Hematocrit 33 % (35-47); Hemoglobin 10.4 g/dl (12.0-16.0); Mean Corpuscular HGB Conc 32 g/dl (31-36); Mean Corpuscular Hemoglobin 27 pg (27-31); Mean Corpuscular Volume 83 fL (80-97); Mean Platelet Volume 8 um3 (7.4-10.4); Red Blood Count 3.93 10^6/ul (4.0-5.4); Red Cell Distribution Width 16 % (10.5-15); White Blood Count 9.4 10^3/ul (3.5-10.8)
--- NOTE | 2016-10-07 16:47 | RAD ---
INDICATION: Shortness of breath. COMPARISON: Comparison is made with a prior CT of the chest from September 16, 2016 and a chest x-ray from September 19 2016. TECHNIQUE: A portable view of the chest was obtained. FINDINGS: The heart is within normal limits in size. There is a large cavitary mass which projects over the mid and lower portion of the right lung measuring 13.2 x 8.0 cm in size. This appears grossly unchanged from the prior study. The left lung is clear. No pleural effusion is seen. IMPRESSION: LARGE CAVITARY MASS IN THE RIGHT LUNG, UNCHANGED.
[2016-10-07 16:55] LABS: Albumin 3.1 g/dL (3.2-5.2); BUN/Creatinine Ratio 39.7 (8-20); EGFR African American 107.9 (>60); EGFR Non-African American 83.9 (>60); Globulin 4.3 g/dL (2-4); Potassium 4.5 mmol/L (3.5-5.0); Total Bilirubin 0.5 mg/dL (0.2-1.0); Total Protein 7.4 g/dL (6.4-8.9)
[2016-10-07 16:58] LABS: Troponin I 0.04 ng/mL (<0.04)
[2016-10-07] MEDS ORDERED: Morphine INJ* 4 MG/ML 1 ML SYRINGE IV ONE (17:13)
[2016-10-07] MEDS ORDERED: Diltiazem DRIP* 100 MG/100 ML ADDV.BAG IVPB SCH (20:00)
[2016-10-07] MEDS: oxyCODONE/Acetamin 5/325 MG* TAB PO PRN ×2 (20:49→22:12)
[2016-10-07] MEDS: Docusate CAP* 100 MG PO SCH (22:58)
[2016-10-07] MEDS: Morphine TAB Extended Release (*) 30 MG TAB.ER PO SCH (22:59)
[2016-10-07] MEDS: Enoxaparin(*) 40 MG/0.4 ML SYR SUBCUT SCH (23:00)
[2016-10-07] MEDS: Dexamethasone TAB* 4 MG PO SCH (23:00)
--- NOTE | 2016-10-08 00:01 | HP ---
HISTORY AND PHYSICAL: DATE OF ADMISSION: 10/07/16 REASON FOR ADMISSION: Worsening shortness of breath and new onset of atrial fibrillation in a patient with underlying recent diagnosis of aqi-lueky-gylj lung cancer. HISTORY OF PRESENT ILLNESS: Mrs. Noguera is a 76-year-old female who had had no significant recent medical history or care for many years. She has been a long time smoker. She has developed right-sided chest pain for the past several months, which was getting worse. She was hospitalized here from to 09/21/16. She became increasingly short of breath and also had a weight loss of 175 pounds, down to 121 pounds over the previous 6 to 8 months. This was associated with a very mild cough. The pain in the right side of the chest had become markedly worse just prior to this admission. Initial chest x-ray on 09/16/16 revealed a very large right lower lobe opacification. CT scan of the chest, abdomen and pelvis revealed a 10 cm right middle lobe mass with an air fluid level suggestive of necrosis. A solid component extended to the chest wall and eroded one of the lateral right ribs. A second right lower lobe lung mass was also noted 2.2 cm. No significant mediastinal and hilar adenopathy and a very suspicious left adrenal mass at 3.3 cm. There was a questionable abnormality in the medial left lobe of the liver. CT scan of the brain revealed a hypodense enhancing mass in the right parietal convexity consistent with a metastatic focus. There was significant vasogenic edema. Following initial workup to improve symptoms, the patient did have a CT-guided biopsy of the right lung mass. This revealed a poorly differentiated non-small- cell lung cancer, with an ALK ROS EGFR and PD-L1 negative. Following institution of steroids and narcotics, the patient was able to be sent home on 09/21/16 and was doing somewhat better from the standpoint of her symptoms of pain, fatigue, decreased appetite, shortness of breath, and headaches. The patient was asked to follow up both with our office and Medical Oncology and also with Radiation Oncology. She had been seen by both services during the hospitalization. The patient has not had followup in our office at this point as she has not scheduled it, but was seen in followup with Radiation Oncology on 09/29/16. At that point, it was recommended to her that she could be candidate for fractionated stereotactic radiotherapy with localized treatment for a single brain metastasis. She could also have a short course of palliative radiation therapy to the chest to help her reduce her need for pain medications. She seemed initially inclined to pursue palliative treatments as opposed to going on hospice but at this point has not had treatment fully established. Apparently, per her and her stepson who accompanies her to the emergency room, she has an appointment set up to see Radiology Oncology again on 10/10/16. The patient reports that she has been using the narcotics, which have controlled her pain to a level to about 5 to 6 on the scale of 1 to 10 with pain being worse when getting up in the morning. However, on discussing pain medication usage with her, she has been using Percocet about 3 times per day, is taking MS Contin mid day and at bedtime and using the Decadron appropriately 8 mg b.i.d. We suggested to her that she might do better taking MS Contin first thing in the morning and then in the evening. The patient reports that her breathing was doing okay when she first went home but for the last 4 to 5 days, has noted some increased shortness of breath and increased cough. She has noted marked increased swelling in her ankles bilaterally with the fluid weeping from her ankles over the past several days. She is convinced that this is due to her elevated blood sugars and thinks that she has diabetes. She reports she has been eating okay per the stepson who seems to know the situation very well and accompanied her in the emergency room , reported that her oral intake has been markedly diminished. Then, she admits after that that her oral intake has been down for the last 4 to 5 days. He reports just 1 to 2 bites per meal which she does report she has been eating as much as a hotdog at the time of the meal. He reports she has been much of her time out of the bed sitting in a desk, trying to get her "affairs in order." [facility] has been arranged for the patient but apparently has only been outside of the house twice. We have had a note in the office that [facility] has tried to contact her repeatedly and were unable to do so to provide services; however, today [facility] did come to the house, found that she was doing more poorly in terms of the peripheral edema and shortness of breath and suggested that she go to Dr. Gant's office. Following the initial visit there, she presented to the emergency room. The patient has been mostly a caregiver for her , who is 89 years old and is on home peritoneal dialysis. PAST MEDICAL HISTORY: No prior hospitalizations. No prior surgeries. No hypertension, diabetes, AL, or CVA. MEDICATIONS: 1. MS Contin 30 mg b.i.d. 2. Percocet 5/325 one to two p.r.n. up to 4 to 6 times per day. 3. Decadron 8 mg b.i.d. 4. Bowel medications as needed. FAMILY HISTORY: Father of alcoholism at age 52. Mother of heart disease. No family history of any malignancies. SOCIAL HISTORY: The patient has been smoking cigarettes since her 40s. She reports she quit 6 months ago, but had smoked for a total of about 35 years. Previously a daily drinker, but now only a very small amount of alcohol. Does not have a healthcare proxy in place but on long discussion with her today in the emergency room, she reports that rather having her being her healthcare proxy, she would like to have her Alex whipple, be her healthcare proxy. We also discussed her code status at length in the emergency room as is further discussed below. REVIEW OF SYSTEMS: Right-sided chest pain continues, although better with narcotics, especially if she takes the short-acting oxycodone. Appetite poor. Continues to loose weight. Continues to have difficulty with eating. Bowels are okay. Increased shortness of breath recently and has noted some increased palpitations. Has had marked increased swelling of the lower extremities with significant seeping of fluid from her lower extremities. Review of systems otherwise negative except as discussed in the accompanied health history form. PHYSICAL EXAMINATION GENERAL: A 76-year-old female who appears quite cachectic and almost emaciated. She has a somewhat unkempt appearance. She is in no acute distress, and she is quite confused and at times, her statements seem to be somewhat random and not reflecting reality. VITAL SIGNS: Blood pressure 110/60, pulse ranging from the 100 up to 140 with an irregularly irregular rhythm, afebrile. HEENT: PERRLA. EOMI. No erythema or exudates. Dry mucous membranes. No palpable or supraclavicular axillary adenopathy. LUNGS: Diminished breath sounds on the right. Left is clear. No rales, rhonchi, or wheezes. Chest wall, easily a palpable mass in the right lateral chest wall just below the axilla, very tender to touch. HEART: Irregularly irregular rhythm without murmurs, rubs, or gallops. ABDOMEN: Soft, nontender without masses or organomegaly. BACK: No CVA or spinal tenderness. EXTREMITIES: Marked edema bilaterally with weeping of the legs almost to the knees. NEUROLOGIC: Deferred at this time. LABORATORY STUDIES: Revealed blood glucose is mildly elevated at 115. No significant changes on CBC. Renal function reasonable. IMPRESSION: A 76-year-old female with recently diagnosed [id number] lung cancer which does not have any specific targets, specifically no EGFR ALK ROS or PD-L1. Situation had been discussed with her previously with a thought that she might have radiation therapy to the brain to help prevent further neurologic symptoms and might be a candidate for radiation therapy to the right chest wall to try to better alleviate her pain. However, both of these situations would be palliative and in no sense, curative and if her symptoms can be controlled okay with Decadron and with narcotics, there may be no dramatic benefits to these. Given her current performance status, she would not be a candidate for chemotherapy. This was discussed at length with her. Upon hearing this information, she is not sure whether she wishes to go ahead with the radiation therapy or not. She is strongly considering whether to just go on hospice therapy. She would love to be in hospice at home and not the hospice residence. We had a long discussion about the fact that unless her performance status improves markedly, she would not be candidate for chemo and that unless her performance status improved significantly, her odds of surviving and having a reasonable quality of life following a cardiac respiratory arrest would be very diminished. She wishes to have a DNR status and is willing to sign for this at this time. She wants her ariconAlex, to be her healthcare proxy. He agrees with the above assessment to not pursue aggressive therapy and to have her be DNR. Following attempt over the weekend to improve her overall functioning and to potentially get her out of atrial fibrillation and see how she does with her breathing and mobility, we will make a decision on whether to proceed with radiation therapy or not. She had been scheduled to start radiation therapy on 10/10/16. 2. New onset of atrial fibrillation. It is likely this is just due to her overall deconditioned state and potentially a perineoplastic syndrome. She has had some slowing of her rate on the Cardizem drip and is currently at 10 mg per hour. This will be continued. An echocardiogram will be obtained in the morning to look at her ejection fraction. If she remains in atrial fibrillation with significant difficulties with the rate control, Cardiology consultation will also be obtained. 3. Marked peripheral edema in her lower extremities with significant weeping. This is likely due to malnutrition and could also be related to a poor cardiac ejection fraction. We will find more about this with her echo. For overnight, her legs will be elevated. There were no signs of infection in the lower extremities. 4. Hypercalcemia. At the time of original diagnosis, she received hydration and Zometa with a marked improvement in her calcium. This has remained under reasonable control. 5. Pain. The patient is on MS Contin 30 mg b.i.d. and p.r.n. Percocet. With this, her pain seems under reasonable control. 6. Brain metastasis. Remains on Decadron at 16 mg per day. CC: Asa Gant MD; MD Sergey Raymond MD * [id number]/[facility] #: [id number] MTDD
[2016-10-08] MEDS: oxyCODONE/Acetamin 5/325 MG* TAB PO PRN ×3 (02:01→14:53)
[2016-10-08 06:00] LABS: Hematocrit 26 % (35-47); Hemoglobin 8.3 g/dl (12.0-16.0); Mean Corpuscular HGB Conc 32 g/dl (31-36); Mean Corpuscular Hemoglobin 27 pg (27-31); Mean Corpuscular Volume 83 fL (80-97); Mean Platelet Volume 8 um3 (7.4-10.4); Red Blood Count 3.09 10^6/ul (4.0-5.4); Red Cell Distribution Width 17 % (10.5-15); White Blood Count 8.4 10^3/ul (3.5-10.8)
[2016-10-08 06:17] LABS: BUN/Creatinine Ratio 38.4 (8-20); Calcium 8.8 mg/dL (8.6-10.3); EGFR African American 99.4 (>60); EGFR Non-African American 77.3 (>60); Potassium 4.8 mmol/L (3.5-5.0)
[2016-10-08] MEDS: Dexamethasone TAB* 4 MG PO SCH ×2 (09:15→21:37)
[2016-10-08] MEDS: Docusate CAP* 100 MG PO SCH ×2 (09:15→21:37)
[2016-10-08] MEDS: Morphine TAB Extended Release (*) 30 MG TAB.ER PO SCH ×2 (09:15→21:37)
--- NOTE | 2016-10-08 11:04 | ED ---
Yang Murguia Matthew, scribed for Vikas Colin MD on 10/07/16 at 1600 . Complex/Multi-Sys Presentation - HPI Summary HPI Summary: A 76 y/o female presents to the ED from Dr. Gant's office for hypoxia since hours ago. Associated symptoms include SOB, pedal edema bilaterally - since 5 days ago, and palpitations. The patient states that she was Dx with diabetes today. She was also recently Dx with lung CA. She states that she starts radiation on 10/10/16. - History Of Current Complaint Chief Complaint: ED Time Seen by Provider: 10/07/16 15:47 Onset/Duration: Still Present Timing: Constant Severity Currently: Moderate Severity Initially: Moderate Location: Negative Associated Signs And Symptoms: Positive: SOB, Palpitations, Edema - pedal - Allergies/Home Medications Allergies/Adverse Reactions: Allergies Allergy/AdvReac Type Severity Reaction Status Date / Time No Known Allergies Allergy Verified 10/03/16 14:07 Home Medications: Home Medications Dexamethasone TAB* [Decadron TAB*] 4 mg PO Q12HR 10/07/16 [History Confirmed ] PMH/Surg Hx/FS Hx/Imm Hx Endocrine/Hematology History: Reports: Hx Diabetes Cardiovascular History: Denies: Hx Hypertension, Hx Pacemaker/ICD History: Denies: Hx Renal Disease Musculoskeletal History: Reports: Hx Arthritis - general Sensory History: Reports: Hx Contacts or Glasses Denies: Hx Hearing Aid Opthamlomology History: Reports: Hx Contacts or Glasses Psychiatric History: Denies: Hx Panic Disorder - Cancer History Cancer Type, Location and Year: Newly detected 09/16/16 here at [facility] [place]. lung mass with mets in lung, brain, adrenal glands Hx Chemotherapy: No Hx Radiation Therapy: No - Surgical History Surgery Procedure, Year, and Place: WARTS REMOVED. D&C Infectious Disease History: No Infectious Disease History: Denies: Traveled Outside the [place] in Last 30 Days - Family History Known Family History: Positive: Cardiac Disease - Social History Alcohol Use: Rare Substance Use Type: Reports: None Hx Tobacco Use: Yes Smoking Status (MU): Former Smoker Type: Cigarettes Length of Time of Smoking/Using Tobacco: 40 years Have You Smoked in the Last Year: Yes Review of Systems Constitutional: Negative Eyes: Negative ENT: Negative Positive: Palpitations Positive: Shortness Of Breath Gastrointestinal: Negative Genitourinary: Negative Musculoskeletal: Negative Skin: Negative Neurological: Negative Psychological: Normal All Other Systems Reviewed And Are Negative: Yes Physical Exam Triage Information Reviewed: Yes Vital Signs On Initial Exam: Initial Vitals Temp Pulse Resp BP Pulse Ox 96.6 F 60 20 115/60 86 10/07/16 15:32 10/07/16 15:32 10/07/16 15:32 10/07/16 15:32 10/07/16 15:32 Vital Signs Reviewed: Yes Appearance: Positive: No Pain Distress Skin: Positive: Warm, Dry, Other - blisters on the anterior left lower leg Head/Face: Positive: Normal Head/Face Inspection Eyes: Positive: Normal ENT: Positive: Normal ENT inspection Neck: Positive: Supple, Nontender Respiratory/Lung Sounds: Positive: Breath Sounds Present, Other - Diffuse crackles Cardiovascular: Positive: IRR, Tachycardia, Other - peripheral edema Abdomen Description: Positive: Nontender, Soft Bowel Sounds: Positive: Present Musculoskeletal: Positive: Normal Neurological: Positive: Alert, Oriented to Person Place, Time Psychiatric: Positive: Affect/Mood Appropriate Diagnostics - Vital Signs Vital Signs Temp Pulse Resp BP Pulse Ox 10/07/16 15:32 96.6 F 60 20 115/60 86 - Laboratory Lab Results: Lab Results 10/07/16 10/07/16 10/07/16 Range/Units 16:20 16:20 16:20 WBC 9.4 (3.5-10.8) 10^3/ul RBC 3.93 L (4.0-5.4) 10^6/ul Hgb 10.4 L (12.0-16.0) g/dl Hct 33 L (35-47) % MCV 83 (80-97) fL MCH 27 (27-31) pg MCHC 32 (31-36) g/dl RDW 16 H (10.5-15) % Plt Count 250 (150-450) 10^3/ul MPV 8 (7.4-10.4) um3 Neut % (Auto) 87.5 H (38-83) % Lymph % (Auto) 6.6 L (25-47) % Whitfield % (Auto) 4.9 (1-9) % Eos % (Auto) 0.8 (0-6) % Baso % (Auto) 0.2 (0-2) % Absolute Neuts (auto) 8.2 H (1.5-7.7) 10^3/ul Absolute Lymphs (auto) 0.6 L (1.0-4.8) 10^3/ul Absolute Monos (auto) 0.5 (0-0.8) 10^3/ul Absolute Eos (auto) 0.1 (0-0.6) 10^3/ul Absolute Basos (auto) 0 (0-0.2) 10^3/ul Absolute Nucleated RBC 0.01 10^3/ul Nucleated RBC % 0.1 INR (Anticoag Therapy) (0.89-1.11) Sodium 133 (133-145) mmol/L Potassium 4.5 (3.5-5.0) mmol/L Chloride 96 L (101-111) mmol/L Carbon Dioxide 31 (22-32) mmol/L Anion Gap 6 (2-11) mmol/L BUN 27 H (6-24) mg/dL Creatinine 0.68 (0.51-0.95) mg/dL Est GFR ( Amer) 107.9 (>60) Est GFR (Non-Af Amer) 83.9 (>60) BUN/Creatinine Ratio 39.7 H (8-20) Glucose 115 H (70-100) mg/dL Lactic Acid 2.1 H* (0.5-2.0) mmol/L Calcium 10.0 (8.6-10.3) mg/dL Total Bilirubin 0.50 (0.2-1.0) mg/dL AST 13 (13-39) U/L ALT 13 (7-52) U/L Alkaline Phosphatase 131 H (34-104) U/L Troponin I 0.04 H* (<0.04) ng/mL B-Natriuretic Peptide ( - 100) pg/mL Total Protein 7.4 (6.4-8.9) g/dL Albumin 3.1 L (3.2-5.2) g/dL Globulin 4.3 H (2-4) g/dL Albumin/Globulin Ratio 0.7 L (1-3) Prealbumin 5 L (18-38) mg/dL 10/07/16 10/07/16 Range/Units 16:20 16:20 WBC (3.5-10.8) 10^3/ul RBC (4.0-5.4) 10^6/ul Hgb (12.0-16.0) g/dl Hct (35-47) % MCV (80-97) fL MCH (27-31) pg MCHC (31-36) g/dl RDW (10.5-15) % Plt Count (150-450) 10^3/ul MPV (7.4-10.4) um3 Neut % (Auto) (38-83) % Lymph % (Auto) (25-47) % Whitfield % (Auto) (1-9) % Eos % (Auto) (0-6) % Baso % (Auto) (0-2) % Absolute Neuts (auto) (1.5-7.7) 10^3/ul Absolute Lymphs (auto) (1.0-4.8) 10^3/ul Absolute Monos (auto) (0-0.8) 10^3/ul Absolute Eos (auto) (0-0.6) 10^3/ul Absolute Basos (auto) (0-0.2) 10^3/ul Absolute Nucleated RBC 10^3/ul Nucleated RBC % INR (Anticoag Therapy) 1.04 (0.89-1.11) Sodium (133-145) mmol/L Potassium (3.5-5.0) mmol/L Chloride (101-111) mmol/L Carbon Dioxide (22-32) mmol/L Anion Gap (2-11) mmol/L BUN (6-24) mg/dL Creatinine (0.51-0.95) mg/dL Est GFR ( Amer) (>60) Est GFR (Non-Af Amer) (>60) BUN/Creatinine Ratio (8-20) Glucose (70-100) mg/dL Lactic Acid (0.5-2.0) mmol/L Calcium (8.6-10.3) mg/dL Total Bilirubin (0.2-1.0) mg/dL AST (13-39) U/L ALT (7-52) U/L Alkaline Phosphatase (34-104) U/L Troponin I (<0.04) ng/mL B-Natriuretic Peptide 216 H ( - 100) pg/mL Total Protein (6.4-8.9) g/dL Albumin (3.2-5.2) g/dL Globulin (2-4) g/dL Albumin/Globulin Ratio (1-3) Prealbumin (18-38) mg/dL Result Diagrams: 10/08/16 05:42 10/08/16 05:42 Lab Statement: Any lab studies that have been ordered have been reviewed, and results considered in the medical decision making process. - Radiology CXR Xray Interpretation: Positive (See Comments) - IMPRESSION: LARGE CAVITARY MASS IN THE RIGHT LUNG, UNCHANGED. Radiology Interpretation Completed By: Radiologist - EKG 15:44 Cardiac Rate: Tachycardia - 146 bpm EKG Rhythm: Atrial Fibrillation EKG Interpretation: RVR Complex Multi-Symp Course/Dx Course Of Treatment: Ms. Noguera presented after a recent diagnosis of widespread lung cancer C/O SOB and weakness. She was in A-Fib on presentation with a rapid response and slowed with cardizem. She does not feel the tachycaria and it is hard to know how long she has been in it. - Diagnoses Provider Diagnoses: Atrial fibrillation with RVR - Physician Notifications Discussed Care Of Patient With: Dr. Ayala (Oncology) at 17:22 -- Notified of patient's history and will admit the patient. - Critical Care Time Critical Care Time: 30-74 min Discharge - Discharge Plan Condition: Guarded Disposition: ADM[facility] TO [facility] The documentation as recorded by the Yang antony Matthew accurately reflects the service I personally performed and the decisions made by me, Vikas Colin MD.
[2016-10-08] MEDS ORDERED: Digoxin IV* 0.5 MG/2 ML AMP (0.25 MG/ML) IV SLOW PU ONE (12:46)
[2016-10-08] MEDS ORDERED: Digoxin TAB* 0.125 MG PO ONE (18:00)
[2016-10-08] MEDS: Enoxaparin(*) 40 MG/0.4 ML SYR SUBCUT SCH ×2 (21:44→23:59)
[2016-10-09] MEDS ORDERED: Digoxin TAB* 0.125 MG PO SCH (09:00)
[2016-10-09] MEDS: Docusate CAP* 100 MG PO SCH (09:46)
[2016-10-09] MEDS: Dexamethasone TAB* 4 MG PO SCH (10:04)
[2016-10-09] MEDS: Morphine TAB Extended Release (*) 30 MG TAB.ER PO SCH (10:05)
--- NOTE | 2016-10-09 10:20 | ECHO ---
Patient: MICKEY CHRISTINA [facility] Rec#: [id number] : 1940 Date: 10/09/2016 Age: 76y Height: 160.02 cm / 63.0 in Weight: 53.52 kg / 118.0 lbs Sex: F BSA: 1.55 Room#: 439 Admit Date#: 10/07/2016 Type: Inpatient Referring: Sergey Ayala MD Reading: Nba Mckeon DO CC: Asa Gant MD Transthoracic Echocardiogram Indication: New A-fib BP: 137/60 HR: 90 Rhythm: A-Fib Findings History: Recent diagnosis Non-small cell lung cancer, smoker,lower extremity edema. Technical Comments: The study is technically limited due to the patient's history of COPD. Completed at 0951. The study was technically limited due to the patient's inability to lay in the left lateral decubitus position. Left Ventricle: The left ventricular chamber size is normal. There is no left ventricular hypertrophy. Global left ventricular wall motion and contractility are within normal limits. There is normal left ventricular systolic function. The estimated ejection fraction is 60-65%. The assessment of diastolic function is non-diagnostic. Left Atrium: The left atrium is mild to moderately dilated. Right Ventricle: The right ventricle is mildly dilated. The right ventricular global systolic function is normal. Right Atrium: The right atrium is mildly dilated. Aortic Valve: The aortic valve is trileaflet. There is evidence of aortic sclerosis without stenosis. There is a trace of aortic regurgitation. Mitral Valve: Mild mitral annular calcification present. The mitral valve leaflets are mildly thickened. There is mild mitral regurgitation. Tricuspid Valve: The tricuspid valve leaflets are mildly thickened. There is mild tricuspid regurgitation. There is evidence of mild to moderate pulmonary hypertension. There is no tricuspid stenosis. Pulmonic Valve: The pulmonic valve structure is not well visualized. There is no evidence of pulmonic regurgitation. There is no pulmonic stenosis. Pericardium: There is no significant pericardial effusion. Aorta: There is no dilatation of the ascending aorta. The aortic arch is not well visualized. There is no dilation of the aortic root. Pulmonary Artery: The main pulmonary artery is not well visualized. Venous: The inferior vena cava is dilated. There is less than 50% respiratory change in the inferior vena cava dimension. Conclusions Patient is in atrial fibrillation at time of study. The left ventricular chamber size is normal. There is no left ventricular hypertrophy. Global left ventricular wall motion and contractility are within normal limits. There is normal left ventricular systolic function. The estimated ejection fraction is 60-65%. The left atrium is mild to moderately dilated. The right ventricle is mildly dilated. The right ventricular global systolic function is normal. There is evidence of aortic sclerosis without stenosis. There is mild mitral regurgitation. There is mild tricuspid regurgitation. There is evidence of mild to moderate pulmonary hypertension. There is no significant pericardial effusion. No prior studies available for comparison at time of interpretation. Measurements Name Value Normal Range RVIDd (AP) 2D 2.3 cm (0.9 - 2.6) RVDdMajor (2D) 4 cm (2.2 - 4.4) RAd ISD 4CH 5.1 cm (3.4 - 4.9) RA (A4C)W 3.9 cm (2.9 - 4.6) IVSd (2D) 0.7 cm (0.6 - 1) LVPWd (2D) 0.6 cm (0.6 - 1) LVIDd (2D) 4.1 cm (3.6 - 5.4) LVIDs (2D) 2.6 cm - LV FS (2D) 36 % (25 - 45) Aortic Annulus 1.8 cm (1.4 - 2.6) Ao root diameter (2D) 2.9 cm (2.1 - 3.5) Ascending Ao 2.8 cm (2.1 - 3.4) LA dimension (AP) 2D 4.4 cm (2.3 - 3.8) LAd ISD 4CH 5.1 cm (2.9 - 5.3) LA ISD 4CH W 3.8 cm (2.5 - 4.5) Name Value Normal Range LA ESV SP 4CH (A/L) 33 ml - LA ESV SP 2CH (A/L) 66 ml - LA ESV BP (A/L) 51 ml - LA ESV BP (A/L) index 33.14 ml/m2 - LA ESV SP 4CH (MOD) 31 ml - LA ESV SP 2CH (MOD) 65 ml - Name Value Normal Range MV E-wave Vmax 1.3 m/sec - MV deceleration time 183 msec - LV septal e' Vmax 0.1 m/sec - LV lateral e' Vmax 0.1 m/sec - LV E:e' septal ratio 13 ratio - LV E:e' lateral ratio 13 ratio - Name Value Normal Range AV Vmax 1.7 m/sec - AV VTI 26 cm - AV peak gradient 13.75 mmHg - AV mean gradient 5.2 mmHg - LVOT diameter 1.9 cm - LVOT Vmax 1.2 m/sec - LVOT VTI 17.9 cm - LVOT peak gradient 5.97 mmHg - LVOT mean gradient 2.54 mmHg - SV LVOT 52 ml - AR PHT 482 msec - AR peak gradient 46 mmHg - Name Value Normal Range TR Vmax 3.1 m/sec - TR peak gradient 38 mmHg - RAP 15 mmHg - RVSP 53 mmHg - IVC diameter 2.2 cm - Name Value Normal Range PV Vmax 0.9 m/sec - PV peak gradient 3.56 mmHg -
[2016-10-09] MEDS ORDERED: Digoxin IV* 0.5 MG/2 ML AMP (0.25 MG/ML) IV SLOW PU ONE (11:08)
[2016-10-09] MEDS: oxyCODONE/Acetamin 5/325 MG* TAB PO PRN (13:39)
[2016-10-09] MEDS ORDERED: LORazepam INJ* 2 MG/ML 1 ML VIAL IV PUSH ONE (20:39)
[2016-10-09 20:51] VITALS: BP 123/55
== END 2016-10-09 21:20 | disposition expired | DRG 309 ==
LOC: ED 15:25 → MEDTELE 19:00
PROVIDERS: ADMIT Internal Medicine Hematology & Oncology; ATTEND Internal Medicine Hematology & Oncology
DX: I48.91 Unspecified atrial fibrillation (principal); C34.90 Malignant neoplasm of unspecified part of unspecified bronchus or lung; C79.31 Secondary malignant neoplasm of brain; E83.52 Hypercalcemia; R60.0 Localized edema; R52 Pain, unspecified; Z87.891 Personal history of nicotine dependence; Z66 Do not resuscitate
CPT/HCPCS: 36415; 71010; 80048; 80053; 83605; 83880; 84134; 84484; 85025; 85610; 87040; 93005; 93306; 94760; 99223; 99232; 99233; A9270-GY; J1160; J1650; J2060; J2270